=== PATIENT | female | born 1945 | race Caucasian/White ===

== ENCOUNTER 2018-11-04 12:50 | Outpatient (REF) | payer MEDICARE, SELFPAY ==
[2018-11-04 21:11] LABS: Anion Gap 8.9 mmol/L (3-11); BUN 30 mg/dL (7-18); CO2 31.1 mmol/L (21.0-32.0); CREATININE 1.27 mg/dL (0.55-1.02); Calcium 11.5 mg/dL (8.5-10.1); Chloride 103 mmol/L (98-107); Estimated GFR 41.48 (mL/min/1.73m2); Glucose 92 mg/dL (70-100); Potassium 3.9 mmol/L (3.5-5.1); Sodium 143 mmol/L (136-145)
[2018-11-06 15:36] LABS: Parathyroid Hormone,Intact 211 pg/ml (19-88)
== END 2018-11-04 13:10 ==
LOC: NCHCN 12:50
PROVIDERS: PCP Internal Medicine; Visit Provider Internal Medicine
DX: I10 Essential (primary) hypertension (principal); E83.52 Hypercalcemia
CPT/HCPCS: 80048; 83970

== ENCOUNTER 2018-11-22 10:11 | Outpatient (REF) | payer MEDICARE, SELFPAY ==
[2018-11-22 21:37] LABS: Anion Gap 10.3 mmol/L (3-11); BUN 16 mg/dL (7-18); CO2 26.7 mmol/L (21.0-32.0); CREATININE 1.08 mg/dL (0.55-1.02); Calcium 10.7 mg/dL (8.5-10.1); Chloride 108 mmol/L (98-107); Estimated GFR 50.01 (mL/min/1.73m2); Glucose 77 mg/dL (70-100); Potassium 3.9 mmol/L (3.5-5.1); Sodium 145 mmol/L (136-145)
== END 2018-11-22 10:31 ==
LOC: NCHCN 10:11
PROVIDERS: PCP Internal Medicine; Visit Provider Family Medicine
DX: E83.52 Hypercalcemia (principal)
CPT/HCPCS: 80048

== ENCOUNTER 2019-03-18 12:19 | Outpatient (REF) | payer MEDICARE, SELFPAY ==
[2019-03-18 23:17] LABS: Anion Gap 8.4 mmol/L (3-11); BUN 22 mg/dL (7-18); CO2 28.6 mmol/L (21.0-32.0); CREATININE 1.02 mg/dL (0.55-1.02); Calcium 10.5 mg/dL (8.5-10.1); Chloride 108 mmol/L (98-107); Estimated GFR 53.27 (mL/min/1.73m2); Glucose 77 mg/dL (70-100); Potassium 4.2 mmol/L (3.5-5.1); Sodium 145 mmol/L (136-145)
== END 2019-03-18 12:39 ==
LOC: NCHCN 12:19
PROVIDERS: PCP Internal Medicine; Visit Provider Internal Medicine
DX: E83.52 Hypercalcemia (principal)
CPT/HCPCS: 80048

== ENCOUNTER 2020-02-03 08:04 | Outpatient (REF) | payer MEDICARE, SELFPAY ==
[2020-02-03 21:22] LABS: BUN 17 mg/dL (7-18); CREATININE 1.03 mg/dL (0.55-1.02); Calcium 10.9 mg/dL (8.5-10.1); Calculated LDL 83 mg/dL (<100); Chloride 112 mmol/L (98-107); Cholesterol 178 mg/dL (<200); Estimated GFR 52.53 (mL/min/1.73m2); Glucose 81 mg/dL (74-106); HDL Cholesterol 35 mg/dL (40-60); Potassium 4.3 mmol/L (3.5-5.1); Sodium 148 mmol/L (136-145); Triglyceride 302 mg/dL (<150)
== END 2020-02-03 08:24 ==
LOC: NCHCN 08:04
PROVIDERS: PCP Internal Medicine; Visit Provider Internal Medicine
DX: I10 Essential (primary) hypertension (principal); M81.0 Age-related osteoporosis without current pathological fracture; E21.3 Hyperparathyroidism, unspecified
CPT/HCPCS: 80048; 80061

== ENCOUNTER 2020-09-15 15:19 | Outpatient (REF) | payer MEDICARE, SELFPAY ==
[2020-09-15 22:11] LABS: ALT 19 U/L (14-59); AST 12 U/L (15-37); Albumin 3.5 g/dL (3.4-5.0); Alkaline Phosphatase 54 U/L (46-116); Anion Gap 5.1 mmol/L (3-11); BUN 17 mg/dL (7-18); Bilirubin, Total 0.3 mg/dL (0.2-1.0); CO2 30.9 mmol/L (21.0-32.0); CREATININE 0.9 mg/dL (0.55-1.02); Calcium 10.7 mg/dL (8.5-10.1); Chloride 110 mmol/L (98-107); Glucose 73 mg/dL (74-106); Potassium 3.4 mmol/L (3.5-5.1); Sodium 146 mmol/L (136-145); Total Protein 6.3 g/dL (6.4-8.2)
[2020-09-15 22:45] LABS: Creatinine,Urine 139.12 mg/dL
[2020-09-15 22:48] LABS: COMMENT (LAB VIEW ONLY) 138.83 mg/dL; Microalb ug/mg Crea 11.2 ug/mg Cr
== END 2020-09-15 15:20 | disposition home or self-care (01) ==
LOC: NCHCN 15:19
PROVIDERS: PCP Internal Medicine; Visit Provider Internal Medicine
DX: R60.0 Localized edema (principal); R79.89 Other specified abnormal findings of blood chemistry
CPT/HCPCS: 80053; 82043; 82565; 82570

== ENCOUNTER 2020-09-20 08:27 | Outpatient (REF) | payer MEDICARE, SELFPAY ==
[2020-09-20 13:19] LABS: Anion Gap 6.8 mmol/L (3-11); BUN 14 mg/dL (7-18); CO2 30.2 mmol/L (21.0-32.0); Calcium 11.1 mg/dL (8.5-10.1); Chloride 109 mmol/L (98-107); Estimated GFR 54.35 (mL/min/1.73m2); Glucose 73 mg/dL (74-106); Potassium 3.6 mmol/L (3.5-5.1); Sodium 146 mmol/L (136-145)
== END 2020-09-20 08:28 | disposition home or self-care (01) ==
LOC: NCHCN 08:27
PROVIDERS: PCP Internal Medicine; Visit Provider Internal Medicine
DX: R60.0 Localized edema (principal)
CPT/HCPCS: 80048

== ENCOUNTER 2020-12-03 14:15 | Outpatient (REF) | payer MEDICARE, SELFPAY ==
[2020-12-03 14:54] LABS: Anion Gap 9.4 mmol/L (3-11); BUN 29 mg/dL (7-18); CO2 26.6 mmol/L (21.0-32.0); Calcium 11.1 mg/dL (8.5-10.1); Chloride 110 mmol/L (98-107); Estimated GFR 54.35 (mL/min/1.73m2); Glucose 86 mg/dL (74-106); Potassium 3.8 mmol/L (3.5-5.1); Sodium 146 mmol/L (136-145)
[2020-12-06 02:19] LABS: Vitamin D 25 Total 48.5 ng/mL (30-100)
[2020-12-07 08:54] LABS: Parathyroid Hormone,Intact 168 pg/mL (19-88)
== END 2020-12-03 14:16 | disposition home or self-care (01) ==
LOC: NCHCN 14:15
PROVIDERS: PCP Internal Medicine; Visit Provider Internal Medicine
DX: E55.9 Vitamin D deficiency, unspecified (principal); I10 Essential (primary) hypertension; E21.3 Hyperparathyroidism, unspecified
CPT/HCPCS: 80048; 82306; 83970

== ENCOUNTER 2022-12-25 15:54 | Outpatient (REF) | payer MEDICARE, MEDICAID, SELFPAY ==
[2022-12-25 15:44] LABS: HCT 37.4 % (36.0-46.0); HGB 11.4 g/dL (11.2-15.7); MCH 24.8 pg (27.0-33.0); MCHC 30.5 % (32.0-36.0); MCV 81 fL (80-95); MPV 10.7 fL (8.0-11.0); Platelet Count 162 10^3/uL (130-400); RDW-SD 47.7 fL; WBC 6.24 10^3/uL (4.4-10.8)
[2022-12-25 16:07] LABS: Anion Gap 7.5 mmol/L (3-11); BUN 19 mg/dL (7-18); CO2 28.5 mmol/L (21.0-32.0); CREATININE 0.8 mg/dL (0.55-1.02); Calcium 8.5 mg/dL (8.5-10.1); Calculated LDL 109 mg/dL (<100); Chloride 111 mmol/L (98-107); Cholesterol 176 mg/dL (<200); Estimated GFR 76.79 (mL/min/1.73m2); Glucose 77 mg/dL (74-106); HDL Cholesterol 43 mg/dL (40-60); Sodium 147 mmol/L (136-145); Triglyceride 120 mg/dL (<150)
== END 2022-12-25 15:55 | disposition home or self-care (01) ==
LOC: NCHCN 15:54
PROVIDERS: PCP Internal Medicine; Visit Provider Internal Medicine
DX: I10 Essential (primary) hypertension (principal); E78.5 Hyperlipidemia, unspecified; D64.9 Anemia, unspecified
CPT/HCPCS: 80048; 80061; 85027

== ENCOUNTER 2023-05-17 16:51 | Outpatient (REF) | payer MEDICARE, MEDICAID, SELFPAY ==
--- OUTSIDE RECORDS SUMMARY | 2023-05-17 16:54 | XMS_ITS | CCD ---
Author Name Unknown Address [address] [place] [address] [id number] Organization Unknown Address [address] [place] [address] [id number] Care Team Providers Care Shop Welder Name Role Phone GARRET MARTINEZ Attending Physician [phone] Vital Signs Unknown or Not Available. Allergies Allergy Code Allergy Type Reaction Status No Known Drug Allergies 0 No known drug allergies Active Procedures Unknown or Not Available. History of Immunizations Unknown or Not Available. 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 Active Medications Medication Code Dose Units Frequency Route Modificatio n Start Date/Time Augmentin 500MG-125MG Oral Tablet 825429 1 TABLET TWICE A DAY ORAL 04/25/2023 11:10 Prescription Detail TAKE 1 TABLET ORAL TWICE A DAY guaiFENesin DM 10MG/5ML-100MG/ 5ML Oral Syrup 019026 10 mL NEEDED EVERY 4 HOURS ORAL 04/25/2023 11:00 Prescription Detail TAKE 10 mL ORAL NEEDED EVERY 4 HOURS Ondansetron 4MG Oral Tablet 656100 4 MILLIGRAMS NEEDED EVERY 8 HOURS ORAL 04/25/2023 11:00 Prescription Detail TAKE 4 MILLIGRAMS ORAL NEEDED EVERY 8 HOURS Acetaminophen 500MG Oral Tablet 616218 8596 MILLIGRAMS NEEDED EVERY 6 HOURS ORAL 04/20/2023 12:03 Prescription Detail TAKE 1000 MILLIGRAMS ORAL NEEDED EVER Y 6 HOURS Alendronate Sod 70MG Oral Tablet 0955251605 0 70 MILLIGRAMS SUNDAYS ORAL 04/20/2023 12:03 Prescription Detail TAKE 70 MILLIGRAMS ORAL SUNDAYS Artificial Tears Ophthalmic Solution 860031 1 EACH FOUR TIMES A DAY OPHTHALMIC 04/20/2023 12:[address] 1 EACH OPHTHALMIC FOUR TIMES A DAY Docusate 100MG Oral Capsule, Liquid Filled 2807358 100 MILLIGRAMS NEEDED TWICE DAILY ORAL 04/20/2023 12:03 Prescription Detail TAKE 100 MILLIGRAMS ORAL NEEDED TWICE DAILY Famotidine 20MG Oral Tablet 957062 20 MILLIGRAMS TWICE A DAY ORAL 04/20/2023 12:03 Prescription Detail TAKE 20 MILLIGRAMS ORAL TWICE A DAY Hydrocortisone 2.5% Topical application Cream 148390 1 EACH NEEDED DAILY TOPICAL APPLICATION 04/20/2023 12:03 Prescription Detail 1 EACH TOPICAL APPLICATION NEEDED MARIA L LY Ibuprofen 200MG Oral Tablet 607280 400 MILLIGRAMS NEEDED EVERY 6 HOURS ORAL 04/20/2023 12:03 Prescription Detail TAKE 400 MILLIGRAMS ORAL NEEDED EVERY 6 HOURS Lisinopril 20MG Oral Tablet 133827 20 MILLIGRAMS DAILY ORAL 023 12:03 Prescription Detail TAKE 20 MILLIGRAMS ORAL DAILY Lovastatin 40MG Oral Tablet 131205 40 MILLIGRAMS BEDTIME ORAL 023 12:03 Prescription Detail TAKE 40 MILLIGRAMS ORAL BEDTIME Polyethylene Glycol 3350 17 GM/1 Packet Oral Packet 230961 1 EACH NEEDED DAILY ORAL 04/20/2023 12:03 Prescription Detail TAKE 1 EACH ORAL NEEDED DAILY Simethicone 80MG Oral Tablet, Chewable 009464 80 MILLIGRAMS NEEDED EVERY 6 HOURS ORAL 04/20/2023 12:03 Prescription Detail TAKE 80 MILLIGRAMS ORAL NEEDED EVERY 6 HOURS Vitamin D3 1000 IU Oral Capsule, Liquid Filled 2784515852 1 1000 IU DAILY ORAL 04/20/2023 12:03 Prescription Detail TAKE 1000 IU ORAL DAILY Fluticasone Propionate 0.05MG/1Actuati [place] 5325401 1 EACH TWICE A DAY NASAL 04/26/2022 16:41 Prescription Detail SPRAY 1 EACH NASAL TWICE A DAY Memantine HCl 7MG Oral Capsule, Extended Release 439644 7 MILLIGRAMS DAILY ORAL 16:41 Prescription Detail TAKE 7 MILLIGRAMS ORAL DAILY Medications Administered During Visit Unknown or Not Available. Encounters Encounter Diagnosis Diagnosis Code Start Date Encounter for screening mamm ogram for malignant neoplasm of breast Z1231 12/31/2020 Social History Smoking Status Code Start Date End Date Never smoker [id number] Patient Decision Aids Unknown or Not Available. Discharge Instructions You were admitted to [facility] on 12/31/2020 12:57 with a principal diagnosis of Encounter for screening mammogram for malignant neoplasm of breast You were discharged from [facility] on 12/31/2020 12:57 Should you have any questions prior to discharge, please contact a member of your healthcare team. If you have left the hospital and have any questions, please contact your primary care physician. Chief Complaint and Reason For Visit Unknown or Not Available. Function Status Unknown or Not Available. Plan of Care Unknown or Not Available. Referral/Transition of Care Unknown or Not Available.
--- OUTSIDE RECORDS SUMMARY | 2023-05-17 16:54 | XMS_ITS | CCD ---
Author Name Unknown Address [address] [place] [address] [id number] Organization Unknown Address [address] [place] [address] [phone] Care Team Providers Care Sales Management Trainee Name Role Phone KATHY MENDEZ Attending Physician [phone] KATHY MENDEZ Er Physician 2 [phone] [place]LEY [place] Registered Nurse [phone] IVY Collins Registered Nurse [phone] Vital Signs Vital Sign Value Unit Date/Time Recent/Initial ? BMI (Body Mass Index) 22.46 kg/m^2 03/06/2022 23: 35 Initial VS Weight Measured 135 lbs 03/06/2022 23:35 Ini tial VS Height 65 in 03/06/2022 23:35 Initial VS BSA (Body Surface Area) 1.68 m^2 03/06/2022 2 3:35 Initial VS BP Systolic 176 mmHg 03/06/2022 23:35 Initial VS BP Diastolic 71 mmHg 03/06/2022 23:35 Initia l VS Respiratory Rate 20 bpm 03/06/2022 23:35 In itial VS Heart Rate 72 bpm 03/06/2022 23:35 Initial VS O2 % BldC Oximetry 99 % 03/06/2022 23:35 Initial VS Body Temperature 36.6 degrees 03/06/2022 23:35 In itial VS BP Systolic 144 mmHg 03/07/2022 09:30 Most Re cent VS BP Diastolic 74 mmHg 03/07/2022 09:30 Most R ecent VS Respiratory Rate 18 bpm 03/07/2022 09:[address] Recent VS Heart Rate 81 bpm 03/07/2022 09:30 Most Rec ent VS O2 % BldC Oximetry 99 % 03/07/2022 09:30 Most Recent VS Allergies Allergy Code Allergy Type Reaction Status No Known Drug Allergies 0 No known drug allergies Active Procedures Unknown or Not Available. History of Immunizations Unknown or Not Available. 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 69495-7 4.78 mg/L L=0.00 H=3 .00 CRP-HIGH SENS 63674-9 0.48 mg/dL L=0.00 H=0. 30 COMPREHENSIVE METABOLIC PANE L (CMP) - Collect Date/Time: 03/06/2022 23:32 Test Name Code Test Result Test Units Test Ref Rang e GLUCOSE 2345-7 121 mg/dL L=70 H=116 BUN 3094-0 22 mg/dL L=6 H=25 CREATININE 2160-0 0.99 mg/dL L=0.51 H=0.95 SODIUM SERUM 2951-2 142 mmol/L L=136 H=145 POTASSIUM SERUM 2823-3 3.8 mmol/L L=3.4 H=5 .2 CHLORIDE SERUM 2075-0 103 mmol/L L=96 H=110 CARBON DIOXIDE (CO2) 2028-9 29 mmol/L L=22 H=34 ANION GAP 27411-1 10.0 mmol/L CALCIUM SERUM 49652-9 9.4 mg/dL L=8.2 H=10. 2 BILIRUBIN TOTAL 1975-2 0.5 mg/dL L=0.0 H=1 .3 ALK. PHOS. 6768-6 37 U/L L=46 H=116 SGOT (AST) 1920-8 17 U/L L=15 H=37 SGPT (ALT) 1742-6 24 U/L L=12 H=78 TOTAL PROTEIN 2885-2 7.9 gm/dL L=6.0 H=8.0 ALBUMIN 1751-7 4.2 gm/dL L=3.4 H=5.0 AGE 77 years eGFR (non-Afr.Amer.) 52392-7 55 mL/min eGFR (Afr-Syrian) 77660-6 66 mL/min LIPASE* - Collect Date/Time: 03/06/2022 23:32 Test Name Code Test Result Test Units Test Ref Rang e LIPASE 122 U/L L=73 H=393 TROPONIN HIGH SENSITIVITY* - Collect Date/Time: 03/06/2022 23:32 Test Name Code Test Result Test Units Test Ref Rang e TROPONIN HS 26.2 pg/mL L=0.0 H=60.4 Specimen seq. Random N/A CBC W/ DIFFERENTIAL* - Colle ct Date/Time: 03/06/2022 23:32 Test Name Code Test Result Test Units Test Ref Rang e WBC 6690-2 5.41 th/cmm L=5.00 H=10.00 NEUT % 78.5 % L=40.0 H=80.0 LYMPH % 15.3 % L=10.0 H=50.0 MONO % 60584-6 4.3 % L=2.0 H=12.0 EOS % 1.3 % L=0.0 H=8.0 BASO % 0.4 % L=0.0 H=3.0 IG % 2514-8 0.2 % L=0.0 H=1.1 NRBC % 47935-7 0.0 % L=0.0 H=0.0 NEUT abs count 751-8 4.3 th/cmm L=1.6 H=8. 4 LYMPH abs count 731-0 0.8 th/cmm L=1.5 H=4 .0 MONO abs count 742-7 0.2 th/cmm L=0.2 H=1. 0 EOS abs count 711-2 0.1 th/cmm L=0.0 H=0.5 BASO abs count 704-7 0.0 th/cmm L=0.0 H=0. 2 IG abs count 23226-3 0.0 th/cmm L=0.0 H=0.1 NRBC abs count 76451-0 0.0 mil/cmm L=0.0 H=0. 0 RBC 789-8 5.13 mil/cmm L=3.90 H=5.40 HEMOGLOBIN 718-7 14.2 gm/dL L=12.0 H=16.0 HEMATOCRIT 4544-3 44 % L=37 H=47 MCV 787-2 85 fL L=82 H=92 MCH 785-6 27.7 pg L=27.0 H=31.0 MCHC 786-4 32.6 % L=32.0 H=36.0 RDW-SD 788-0 44.5 fL L=39.0 H=49.0 PLATELET COUNT 777-3 132 th/cmm L=150 H=45 0 KATIE COVID GENEXPERT* - Co llect Date/Time: 03/07/2022 04:13 Test Name Code Test Result Test Units Test Ref Rang e COVID 03015-1 NEGATIVE N/A Normal: Negati ve [facility]- 34159-0 INPATIENT/ED N/A Active Medications Medications Administered During Visit Medication Dose Units Frequency Route Date/Time of Last Dose ONDANSETRON INJ SDV: 4MG/2ML 4 MG X1 I MANUFACTURING LEADER 03/06/2022 23:56 SODIUM CHLORIDE 0.9% 500ML 500 ML X1 03/06/2022 23:56 ONDANSETRON INJ SDV: 4MG/2ML 4 MG X1 I MANUFACTURING LEADER 03/07/2022 01:02 HALOPERIDOL LACTATE INJ: 5MG/1ML 2.5 MG X1 IVP 03/07/2022 02:03 LACTATED RINGERS 1000ML 1000 ML X1 03/07/2022 04:14 HALOPERIDOL LACTATE INJ: 5MG/1ML 2.5 MG X1 IVP 03/07/2022 09:59 Encounters Encounter Diagnosis Diagnosis Code Start Date Obstructed diaphragmatic hernia 935693186 03/06/2022 Social History Smoking Status Code Start Date End Date Never smoker 888137450 Patient Decision Aids Unknown or Not Available. Discharge Instructions You were admitted to [facility] on 03/06/2022 23:10 with a principal diagnosis of Diaphragmatic hernia with obstruction, without gangrene You had the following tests done:[facility] [employer] GENEXPERT*C REACTIVE PROTEIN HIGH SENSITIVITY*CBC W/ DIFFERENTIAL*COMPREHENSIVE METABOLIC PANEL (CMP)LIPASE*TROPONIN HIGH SENSITIVITY* You were discharged from [facility] on 03/07/2022 10:03 Should you have any questions prior to discharge, please contact a member of your healthcare team. If you have left the hospital and have any questions, please contact your primary care physician. Chief Complaint and Reason For Visit Chief Complaint Date of Onset ABDOMINAL PAIN Function Status Unknown or Not Available. Plan of Care Unknown or Not Available. Referral/Transition of Care Unknown or Not Available.
--- OUTSIDE RECORDS SUMMARY | 2023-05-17 16:54 | XMS_ITS | CCD ---
Author Name Unknown Address [address] [place] [address] [phone] Organization Unknown Address [address] [place] [address] [phone] Care Team Providers Care Global Sales Director Name Role Phone LITA BENTON Attending Physician [phone] KATHY MENDEZ Er Physician 2 [phone] KATHY MENDEZ Rounding (Secondary) Physician [phone] DINA Castillo Registered Nurse [phone] Vital Signs Vital Sign Value Unit Date/Time Recent/Initial ? BP Systolic 165 mmHg 04/25/2022 00:07 Initial VS BP Diastolic 71 mmHg 04/25/2022 00:07 Initia l VS Respiratory Rate 18 bpm 04/25/2022 00:07 In itial VS Heart Rate 68 bpm 04/25/2022 00:07 Initial VS O2 % BldC Oximetry 95 % 04/25/2022 00:07 Initial VS Body Temperature 35.6 degrees 04/25/2022 00:07 In itial VS BMI (Body Mass Index) 24.22 kg/m^2 04/25/2022 03: 11 Initial VS Weight Measured 124 lbs 04/25/2022 03:11 Ini tial VS Height 60 in 04/25/2022 03:11 Initial VS BSA (Body Surface Area) 1.54 m^2 04/25/2022 0 3:11 Initial VS BP Systolic 140 mmHg 04/26/2022 16:25 Most Re cent VS BP Diastolic 66 mmHg 04/26/2022 16:25 Most R ecent VS Respiratory Rate 18 bpm 04/26/2022 16:[address] Recent VS Heart Rate 63 bpm 04/26/2022 16:25 Most Rec ent VS O2 % BldC Oximetry 94 % 04/26/2022 16:25 Most Recent VS Body Temperature 36.7 degrees 04/26/2022 16:[address] Recent VS Allergies Allergy Code Allergy Type Reaction Status No Known Drug Allergies 0 No known drug allergies Active Procedures Unknown or Not Available. History of Immunizations Unknown or Not Available. 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 2 AGE 77 years eGFR (non-Afr.Amer.) 15059-2 74 mL/min eGFR (Afr-Libyan) 72060-0 90 mL/min C REACTIVE PROTEIN HIGH SENS ITIVITY* - Collect Date/Time: 04/25/2022 00:06 Test Name Code Test Result Test Units Test Ref Rang e CRP-HIGH SENS. 42807-7 7.05 mg/L L=0.00 H=3 .00 CRP-HIGH SENS 13090-2 0.71 mg/dL L=0.00 H=0. 30 COMPREHENSIVE METABOLIC PANE L (CMP) - Collect Date/Time: 04/25/2022 00:06 Test Name Code Test Result Test Units Test Ref Rang e GLUCOSE 2345-7 122 mg/dL L=70 H=116 BUN 3094-0 24 mg/dL L=6 H=25 CREATININE 2160-0 0.93 mg/dL L=0.51 H=0.95 SODIUM SERUM 2951-2 145 mmol/L L=136 H=145 POTASSIUM SERUM 2823-3 3.9 mmol/L L=3.4 H=5 .2 CHLORIDE SERUM 2075-0 104 mmol/L L=96 H=110 CARBON DIOXIDE (CO2) 2028-9 29 mmol/L L=22 H=34 ANION GAP 13445-4 11.7 mmol/L CALCIUM SERUM 78854-9 9.3 mg/dL L=8.2 H=10. 2 BILIRUBIN TOTAL 1975-2 0.6 mg/dL L=0.0 H=1 .3 ALK. PHOS. 6768-6 42 U/L L=46 H=116 SGOT (AST) 1920-8 21 U/L L=15 H=37 SGPT (ALT) 1742-6 24 U/L L=12 H=78 TOTAL PROTEIN 2885-2 8.1 gm/dL L=6.0 H=8.0 ALBUMIN 1751-7 4.2 gm/dL L=3.4 H=5.0 AGE 77 years eGFR (non-Afr.Amer.) 99297-6 59 mL/min eGFR (Afr-Libyan) 07625-1 71 mL/min LIPASE* NEW - Collect Date/T tatiana: 04/25/2022 00:06 Test Name Code Test Result Test Units Test Ref Rang e LIPASE. 26 U/L L=16 H=77 CBC W/ DIFFERENTIAL* - [facility] ct Date/Time: 04/26/2022 07:35 Test Name Code Test Result Test Units Test Ref Rang e WBC 6690-2 6.02 th/cmm L=5.00 H=10.00 NEUT % 77.4 % L=40.0 H=80.0 LYMPH % 13.1 % L=10.0 H=50.0 MONO % 16674-0 8.5 % L=2.0 H=12.0 EOS % 0.5 % L=0.0 H=8.0 BASO % 0.2 % L=0.0 H=3.0 IG % 2514-8 0.3 % L=0.0 H=1.1 NRBC % 08029-7 0.0 % L=0.0 H=0.0 NEUT abs count 751-8 4.7 th/cmm L=1.6 H=8. 4 LYMPH abs count 731-0 0.8 th/cmm L=1.5 H=4 .0 MONO abs count 742-7 0.5 th/cmm L=0.2 H=1. 0 EOS abs count 711-2 0.0 th/cmm L=0.0 H=0.5 BASO abs count 704-7 0.0 th/cmm L=0.0 H=0. 2 IG abs count 05083-9 0.0 th/cmm L=0.0 H=0.1 NRBC abs count 13335-6 0.0 mil/cmm L=0.0 H=0. 0 RBC 789-8 3.83 mil/cmm L=3.90 H=5.40 HEMOGLOBIN 718-7 10.4 gm/dL L=12.0 H=16.0 HEMATOCRIT 4544-3 34 % L=37 H=47 MCV 787-2 89 fL L=82 H=92 MCH 785-6 27.2 pg L=27.0 H=31.0 MCHC 786-4 30.5 % L=32.0 H=36.0 RDW-SD 788-0 46.2 fL L=39.0 H=49.0 PLATELET COUNT 777-3 138 th/cmm L=150 H=45 0 CBC W/ DIFFERENTIAL* - [facility] ct Date/Time: 04/25/2022 00:06 Test Name Code Test Result Test Units Test Ref Rang e WBC 6690-2 7.27 th/cmm L=5.00 H=10.00 NEUT % 82.5 % L=40.0 H=80.0 LYMPH % 12.2 % L=10.0 H=50.0 MONO % 00409-8 3.7 % L=2.0 H=12.0 EOS % 0.6 % L=0.0 H=8.0 BASO % 0.4 % L=0.0 H=3.0 IG % 2514-8 0.6 % L=0.0 H=1.1 NRBC % 44504-7 0.0 % L=0.0 H=0.0 NEUT abs count 751-8 6.0 th/cmm L=1.6 H=8. 4 LYMPH abs count 731-0 0.9 th/cmm L=1.5 H=4 .0 MONO abs count 742-7 0.3 th/cmm L=0.2 H=1. 0 EOS abs count 711-2 0.0 th/cmm L=0.0 H=0.5 BASO abs count 704-7 0.0 th/cmm L=0.0 H=0. 2 IG abs count 05980-2 0.0 th/cmm L=0.0 H=0.1 NRBC abs count 10754-3 0.0 mil/cmm L=0.0 H=0. 0 RBC 789-8 4.97 mil/cmm L=3.90 H=5.40 HEMOGLOBIN 718-7 13.5 gm/dL L=12.0 H=16.0 HEMATOCRIT 4544-3 42 % L=37 H=47 MCV 787-2 84 fL L=82 H=92 MCH 785-6 27.2 pg L=27.0 H=31.0 MCHC 786-4 32.3 % L=32.0 H=36.0 RDW-SD 788-0 42.5 fL L=39.0 H=49.0 PLATELET COUNT 777-3 173 th/cmm L=150 H=45 0 KATIE COVID GENEXPERT* - Co llect Date/Time: 04/25/2022 00:16 Test Name Code Test Result Test Units Test Ref Rang e COVID 19397-0 NEGATIVE N/A Normal: Negati ve [facility]- 50030-3 INPATIENT/ED N/A Active Medications Medications Administered During Visit Medication Dose Units Frequency Route Date/Time of Last Dose SODIUM CHLORIDE 0.9% 500ML 500 ML X1 04/25/2022 00:07 ONDANSETRON INJ SDV: 4MG/2ML 4 MG X1 I ONLINE ADVERTISING ANALYST 04/25/2022 00:05 ACETAMINOPHEN INJ IVPB: 1000MG/100ML 1000 MG X1 04/25/2022 00:0 7 PANTOPRAZOLE INJ SDV: 40MG 40 MG BID IVP 04/26/2022 08:32 POTASSIUM CHL IN D5%-NS: 20mEq/1000ML 20 MEQ CONT 04/26/2022 06:5 9 Encounters Encounter Diagnosis Diagnosis Code Start Date Diaphragmatic hernia with obstruction, without g angrene K440 04/25/2022 Social History Smoking Status Code Start Date End Date Never smoker [id number] Patient Decision Aids Unknown or Not Available. Discharge Instructions You were admitted to [facility] on 04/25/2022 03:00 with a principal diagnosis of Diaphragmatic hernia with obstruction, without gangrene You had the following tests done:BASIC METABOLIC PANEL (BMP)CBC W/ DIFFERENTIAL*[facility] COVID GENEXPERT*C REACTIVE PROTEIN HIGH SENSITIVITY*CBC W/ DIFFERENTIAL*COMPREHENSIVE METABOLIC PANEL (CMP)LIPASE* NEW You were discharged from [facility] on 04/26/2022 17:15 Should you have any questions prior to discharge, please contact a member of your healthcare team. If you have left the hospital and have any questions, please contact your primary care physician. Chief Complaint and Reason For Visit Chief Complaint Date of Onset BOWL OBSTRUCTION 04/25/2022 Function Status Unknown or Not Available. Plan of Care Unknown or Not Available. Referral/Transition of Care Reason for Transfer: TRANSFER FROM [facility] Referring Provider: [facility] Address: [address] [place] [id number]
--- OUTSIDE RECORDS SUMMARY | 2023-05-17 16:55 | XMS_ITS | CCD ---
Author Name Unknown Address [address] [place] [address] [phone] Organization Unknown Address [address] [place] [address] [phone] Care Team Providers Care Reproductive Surgeon Name Role Phone DAVION SMITH Attending Physician [phone] Vital Signs Unknown or Not Available. Allergies Allergy Code Allergy Type Reaction Status No Known Drug Allergies 0 No known drug allergies Active Procedures Unknown or Not Available. History of Immunizations Unknown or Not Available. 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 467321438 04/25/2022 Resolved Compulsive hoarding 841492730 03/06/2022 Resol isael Depression 07582489 03/06/2022 Resolved PTSD 59223631 03/06/2022 Resolved Chronic kidney disease 095214142 03/06/2022 Re solved Results KATIE GUZMAN* - Heri ect Date/Time: 08/05/2021 10:37 Test Name Code Test Result Test Units Test Ref Rang e Tier- 65293-4 PRE-OP N/A SARS COV2 RNA: 80689-4 NEGATIVE N/A REFERENCE RANGE: NEGAT Active Medications Medication Code Dose Units Frequency Route Modificatio n Start Date/Time Augmentin 500MG-125MG Oral Tablet [id number] 1 TABLET TWICE A DAY ORAL 04/25/2023 11:10 Prescription Detail TAKE 1 TABLET ORAL TWICE A DAY guaiFENesin DM 10MG/5ML-100MG/ 5ML Oral Syrup 731713 10 mL NEEDED EVERY 4 HOURS ORAL 04/25/2023 11:00 Prescription Detail TAKE 10 mL ORAL NEEDED EVERY 4 HOURS Ondansetron 4MG Oral Tablet 861918 4 MILLIGRAMS NEEDED EVERY 8 HOURS ORAL 04/25/2023 11:00 Prescription Detail TAKE 4 MILLIGRAMS ORAL NEEDED EVERY 8 HOURS Acetaminophen 500MG Oral Tablet 319799 1110 MILLIGRAMS NEEDED EVERY 6 HOURS ORAL 04/20/2023 12:03 Prescription Detail TAKE 1000 MILLIGRAMS ORAL NEEDED EVER Y 6 HOURS Alendronate Sod 70MG Oral Tablet 5891791640 0 70 MILLIGRAMS SUNDAYS ORAL 04/20/2023 12:03 Prescription Detail TAKE 70 MILLIGRAMS ORAL SUNDAYS Artificial Tears Ophthalmic Solution 322019 1 EACH FOUR TIMES A DAY OPHTHALMIC 04/20/2023 12:[address] 1 EACH OPHTHALMIC FOUR TIMES A DAY Docusate 100MG Oral Capsule, Liquid Filled 8799979 100 MILLIGRAMS NEEDED TWICE DAILY ORAL 04/20/2023 12:03 Prescription Detail TAKE 100 MILLIGRAMS ORAL NEEDED TWICE DAILY Famotidine 20MG Oral Tablet 356641 20 MILLIGRAMS TWICE A DAY ORAL 04/20/2023 12:03 Prescription Detail TAKE 20 MILLIGRAMS ORAL TWICE A DAY Hydrocortisone 2.5% Topical application Cream 365863 1 EACH NEEDED DAILY TOPICAL APPLICATION 04/20/2023 12:03 Prescription Detail 1 EACH TOPICAL APPLICATION NEEDED MARIA L LY Ibuprofen 200MG Oral Tablet 699377 400 MILLIGRAMS NEEDED EVERY 6 HOURS ORAL 04/20/2023 12:03 Prescription Detail TAKE 400 MILLIGRAMS ORAL NEEDED EVERY 6 HOURS Lisinopril 20MG Oral Tablet 838108 20 MILLIGRAMS DAILY ORAL 023 12:03 Prescription Detail TAKE 20 MILLIGRAMS ORAL DAILY Lovastatin 40MG Oral Tablet 985677 40 MILLIGRAMS BEDTIME ORAL 023 12:03 Prescription Detail TAKE 40 MILLIGRAMS ORAL BEDTIME Polyethylene Glycol 3350 17 GM/1 Packet Oral Packet 837891 1 EACH NEEDED DAILY ORAL 04/20/2023 12:03 Prescription Detail TAKE 1 EACH ORAL NEEDED DAILY Simethicone 80MG Oral Tablet, Chewable 079380 80 MILLIGRAMS NEEDED EVERY 6 HOURS ORAL 04/20/2023 12:03 Prescription Detail TAKE 80 MILLIGRAMS ORAL NEEDED EVERY 6 HOURS Vitamin D3 1000 IU Oral Capsule, Liquid Filled 2218830199 1 1000 IU DAILY ORAL 04/20/2023 12:03 Prescription Detail TAKE 1000 IU ORAL DAILY Fluticasone Propionate 0.05MG/1Actuati on Nasal [place] 2704688 1 EACH TWICE A DAY NASAL 04/26/2022 16:41 Prescription Detail SPRAY 1 EACH NASAL TWICE A DAY Memantine HCl 7MG Oral Capsule, Extended Release 647885 7 MILLIGRAMS DAILY ORAL 16:41 Prescription Detail TAKE 7 MILLIGRAMS ORAL DAILY Medications Administered During Visit Unknown or Not Available. Encounters Encounter Diagnosis Diagnosis Code Start Date Pre-surgery testing [id number] 08/05/2021 Social History Smoking Status Code Start Date End Date Never smoker [id number] Patient Decision Aids Unknown or Not Available. Discharge Instructions You were admitted to [facility] on 08/05/2021 06:52 with a principal diagnosis of Encounter for preprocedural laboratory examination You had the following tests done:KATIE COVID RHEONIX* You were discharged from [facility] on 08/05/2021 06:53 Should you have any questions prior to [...]
--- OUTSIDE RECORDS SUMMARY | 2023-05-17 16:55 | XMS_ITS | CCD ---
Author Name Unknown Address [address] [place] [address] [phone] Organization Unknown Address [address] [place] [address] [phone] Care Team Providers Care Rn International Name Role Phone GARRET MARTINEZ Attending Physician [phone] Vital Signs Unknown or Not Available. Allergies Allergy Code Allergy Type Reaction Status No Known Drug Allergies 0 No known drug allergies Active Procedures Unknown or Not Available. History of Immunizations Unknown or Not Available. 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 Active Medications Medication Code Dose Units Frequency Route Modificatio n Start Date/Time Augmentin 500MG-125MG Oral Tablet 396618 1 TABLET TWICE A DAY ORAL 04/25/2023 11:10 Prescription Detail TAKE 1 TABLET ORAL TWICE A DAY guaiFENesin DM 10MG/5ML-100MG/ 5ML Oral Syrup 536177 10 mL NEEDED EVERY 4 HOURS ORAL 04/25/2023 11:00 Prescription Detail TAKE 10 mL ORAL NEEDED EVERY 4 HOURS Ondansetron 4MG Oral Tablet 317397 4 MILLIGRAMS NEEDED EVERY 8 HOURS ORAL 04/25/2023 11:00 Prescription Detail TAKE 4 MILLIGRAMS ORAL NEEDED EVERY 8 HOURS Acetaminophen 500MG Oral Tablet 386381 7116 MILLIGRAMS NEEDED EVERY 6 HOURS ORAL 04/20/2023 12:03 Prescription Detail TAKE 1000 MILLIGRAMS ORAL NEEDED EVER Y 6 HOURS Alendronate Sod 70MG Oral Tablet 1801066854 0 70 MILLIGRAMS SUNDAYS ORAL 04/20/2023 12:03 Prescription Detail TAKE 70 MILLIGRAMS ORAL SUNDAYS Artificial Tears Ophthalmic Solution 061485 1 EACH FOUR TIMES A DAY OPHTHALMIC 04/20/2023 12:[address] 1 EACH OPHTHALMIC FOUR TIMES A DAY Docusate 100MG Oral Capsule, Liquid Filled 2172649 100 MILLIGRAMS NEEDED TWICE DAILY ORAL 04/20/2023 12:03 Prescription Detail TAKE 100 MILLIGRAMS ORAL NEEDED TWICE DAILY Famotidine 20MG Oral Tablet 492637 20 MILLIGRAMS TWICE A DAY ORAL 04/20/2023 12:03 Prescription Detail TAKE 20 MILLIGRAMS ORAL TWICE A DAY Hydrocortisone 2.5% Topical application Cream 367073 1 EACH NEEDED DAILY TOPICAL APPLICATION 04/20/2023 12:03 Prescription Detail 1 EACH TOPICAL APPLICATION NEEDED MARIA L LY Ibuprofen 200MG Oral Tablet 911527 400 MILLIGRAMS NEEDED EVERY 6 HOURS ORAL 04/20/2023 12:03 Prescription Detail TAKE 400 MILLIGRAMS ORAL NEEDED EVERY 6 HOURS Lisinopril 20MG Oral Tablet 858526 20 MILLIGRAMS DAILY ORAL 023 12:03 Prescription Detail TAKE 20 MILLIGRAMS ORAL DAILY Lovastatin 40MG Oral Tablet 070441 40 MILLIGRAMS BEDTIME ORAL 023 12:03 Prescription Detail TAKE 40 MILLIGRAMS ORAL BEDTIME Polyethylene Glycol 3350 17 GM/1 Packet Oral Packet 771865 1 EACH NEEDED DAILY ORAL 04/20/2023 12:03 Prescription Detail TAKE 1 EACH ORAL NEEDED DAILY Simethicone 80MG Oral Tablet, Chewable 332615 80 MILLIGRAMS NEEDED EVERY 6 HOURS ORAL 04/20/2023 12:03 Prescription Detail TAKE 80 MILLIGRAMS ORAL NEEDED EVERY 6 HOURS Vitamin D3 1000 IU Oral Capsule, Liquid Filled 5109180069 1 1000 IU DAILY ORAL 04/20/2023 12:03 Prescription Detail TAKE 1000 IU ORAL DAILY Fluticasone Propionate 0.05MG/1Actuati on Nasal [place] 0019376 1 EACH TWICE A DAY NASAL 04/26/2022 16:41 Prescription Detail SPRAY 1 EACH NASAL TWICE A DAY Memantine HCl 7MG Oral Capsule, Extended Release 957100 7 MILLIGRAMS DAILY ORAL 16:41 Prescription Detail TAKE 7 MILLIGRAMS ORAL DAILY Medications Administered During Visit Unknown or Not Available. Encounters Encounter Diagnosis Diagnosis Code Start Date Senile osteoporosis [id number] 07/14/2021 Social History Smoking Status Code Start Date End Date Never smoker 853633103 Patient Decision Aids Unknown or Not Available. Discharge Instructions You were admitted to [facility] on 07/14/2021 13:04 with a principal diagnosis of Age-related osteoporosis without current pathological fracture You were discharged from [facility] on 07/14/2021 13:04 Should you have any questions prior to discharge, please contact a member of your healthcare team. If you have left the hospital and have any questions, please contact your primary care physician. Chief Complaint and Reason For Visit Chief Complaint Date of Onset OSTEOPOROSIS, POSTMENOPAUSAL Function Status Unknown or Not Available. Plan of Care Unknown or Not Available. Referral/Transition of Care Unknown or Not Available.
--- OUTSIDE RECORDS SUMMARY | 2023-05-17 16:55 | XMS_ITS | CCD ---
Author Name Unknown Address [address] [place] [address] [phone] Organization Unknown Address [address] [place] [address] [phone] Care Team Providers Care Flyer Maker Name Role Phone GARRET MARTINEZ Attending Physician [phone] Vital Signs Unknown or Not Available. Allergies Allergy Code Allergy Type Reaction Status No Known Drug Allergies 0 No known drug allergies Active Procedures Unknown or Not Available. History of Immunizations Unknown or Not Available. 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 Active Medications Medication Code Dose Units Frequency Route Modificatio n Start Date/Time Augmentin 500MG-125MG Oral Tablet 189236 1 TABLET TWICE A DAY ORAL 04/25/2023 11:10 Prescription Detail TAKE 1 TABLET ORAL TWICE A DAY guaiFENesin DM 10MG/5ML-100MG/ 5ML Oral Syrup 918183 10 mL NEEDED EVERY 4 HOURS ORAL 04/25/2023 11:00 Prescription Detail TAKE 10 mL ORAL NEEDED EVERY 4 HOURS Ondansetron 4MG Oral Tablet 965308 4 MILLIGRAMS NEEDED EVERY 8 HOURS ORAL 04/25/2023 11:00 Prescription Detail TAKE 4 MILLIGRAMS ORAL NEEDED EVERY 8 HOURS Acetaminophen 500MG Oral Tablet 327037 8134 MILLIGRAMS NEEDED EVERY 6 HOURS ORAL 04/20/2023 12:03 Prescription Detail TAKE 1000 MILLIGRAMS ORAL NEEDED EVER Y 6 HOURS Alendronate Sod 70MG Oral Tablet 4108386497 0 70 MILLIGRAMS SUNDAYS ORAL 04/20/2023 12:03 Prescription Detail TAKE 70 MILLIGRAMS ORAL SUNDAYS Artificial Tears Ophthalmic Solution 691841 1 EACH FOUR TIMES A DAY OPHTHALMIC 04/20/2023 12:[address] 1 EACH OPHTHALMIC FOUR TIMES A DAY Docusate 100MG Oral Capsule, Liquid Filled 3912181 100 MILLIGRAMS NEEDED TWICE DAILY ORAL 04/20/2023 12:03 Prescription Detail TAKE 100 MILLIGRAMS ORAL NEEDED TWICE DAILY Famotidine 20MG Oral Tablet 166933 20 MILLIGRAMS TWICE A DAY ORAL 04/20/2023 12:03 Prescription Detail TAKE 20 MILLIGRAMS ORAL TWICE A DAY Hydrocortisone 2.5% Topical application Cream 378464 1 EACH NEEDED DAILY TOPICAL APPLICATION 04/20/2023 12:03 Prescription Detail 1 EACH TOPICAL APPLICATION NEEDED MARIA L LY Ibuprofen 200MG Oral Tablet 857993 400 MILLIGRAMS NEEDED EVERY 6 HOURS ORAL 04/20/2023 12:03 Prescription Detail TAKE 400 MILLIGRAMS ORAL NEEDED EVERY 6 HOURS Lisinopril 20MG Oral Tablet 489934 20 MILLIGRAMS DAILY ORAL 023 12:03 Prescription Detail TAKE 20 MILLIGRAMS ORAL DAILY Lovastatin 40MG Oral Tablet 350278 40 MILLIGRAMS BEDTIME ORAL 023 12:03 Prescription Detail TAKE 40 MILLIGRAMS ORAL BEDTIME Polyethylene Glycol 3350 17 GM/1 Packet Oral Packet 028248 1 EACH NEEDED DAILY ORAL 04/20/2023 12:03 Prescription Detail TAKE 1 EACH ORAL NEEDED DAILY Simethicone 80MG Oral Tablet, Chewable 086754 80 MILLIGRAMS NEEDED EVERY 6 HOURS ORAL 04/20/2023 12:03 Prescription Detail TAKE 80 MILLIGRAMS ORAL NEEDED EVERY 6 HOURS Vitamin D3 1000 IU Oral Capsule, Liquid Filled 1272869288 1 1000 IU DAILY ORAL 04/20/2023 12:03 Prescription Detail TAKE 1000 IU ORAL DAILY Fluticasone Propionate 0.05MG/1Actuati on Nasal [place] 1243988 1 EACH TWICE A DAY NASAL 04/26/2022 16:41 Prescription Detail SPRAY 1 EACH NASAL TWICE A DAY Memantine HCl 7MG Oral Capsule, Extended Release 510705 7 MILLIGRAMS DAILY ORAL 16:41 Prescription Detail TAKE 7 MILLIGRAMS ORAL DAILY Medications Administered During Visit Unknown or Not Available. Encounters Encounter Diagnosis Diagnosis Code Start Date Low back pain [id number] 08/12/2021 Social History Smoking Status Code Start Date End Date Never smoker 065802664 Patient Decision Aids Unknown or Not Available. Discharge Instructions You were admitted to [facility] on 08/12/2021 09:22 with a principal diagnosis of Other low back pain You were discharged from [facility] on 08/12/2021 09:22 Should you have any questions prior to discharge, please contact a member of your healthcare team. If you have left the hospital and have any questions, please contact your primary care physician. Chief Complaint and Reason For Visit Chief Complaint Date of Onset LBP Function Status Unknown or Not Available. Plan of Care Unknown or Not Available. Referral/Transition of Care Unknown or Not Available.
--- OUTSIDE RECORDS SUMMARY | 2023-05-17 16:55 | XMS_ITS | CCD ---
Author Name Unknown Address [address] [place] [address] [phone] Organization Unknown Address [address] [place] [address] [phone] Care Team Providers Care Drink Mixer Name Role Phone LINDSAY KNOX Attending Physician [phone] LINDSAY KNOX Rounding (Secondary) Physician [phone] Vital Signs Unknown or Not Available. Allergies Allergy Code Allergy Type Reaction Status No Known Drug Allergies 0 No known drug allergies Active Procedures Unknown or Not Available. History of Immunizations Unknown or Not Available. 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 Active Medications Medication Code Dose Units Frequency Route Modificatio n Start Date/Time Augmentin 500MG-125MG Oral Tablet 826416 1 TABLET TWICE A DAY ORAL 04/25/2023 11:10 Prescription Detail TAKE 1 TABLET ORAL TWICE A DAY guaiFENesin DM 10MG/5ML-100MG/ 5ML Oral Syrup 165182 10 mL NEEDED EVERY 4 HOURS ORAL 04/25/2023 11:00 Prescription Detail TAKE 10 mL ORAL NEEDED EVERY 4 HOURS Ondansetron 4MG Oral Tablet 880639 4 MILLIGRAMS NEEDED EVERY 8 HOURS ORAL 04/25/2023 11:00 Prescription Detail TAKE 4 MILLIGRAMS ORAL NEEDED EVERY 8 HOURS Acetaminophen 500MG Oral Tablet 183713 8013 MILLIGRAMS NEEDED EVERY 6 HOURS ORAL 04/20/2023 12:03 Prescription Detail TAKE 1000 MILLIGRAMS ORAL NEEDED EVER Y 6 HOURS Alendronate Sod 70MG Oral Tablet 7965562343 0 70 MILLIGRAMS SUNDAYS ORAL 04/20/2023 12:03 Prescription Detail TAKE 70 MILLIGRAMS ORAL SUNDAYS Artificial Tears Ophthalmic Solution 178398 1 EACH FOUR TIMES A DAY OPHTHALMIC 04/20/2023 12:[address] 1 EACH OPHTHALMIC FOUR TIMES A DAY Docusate 100MG Oral Capsule, Liquid Filled 1052362 100 MILLIGRAMS NEEDED TWICE DAILY ORAL 04/20/2023 12:03 Prescription Detail TAKE 100 MILLIGRAMS ORAL NEEDED TWICE DAILY Famotidine 20MG Oral Tablet 970768 20 MILLIGRAMS TWICE A DAY ORAL 04/20/2023 12:03 Prescription Detail TAKE 20 MILLIGRAMS ORAL TWICE A DAY Hydrocortisone 2.5% Topical application Cream 426867 1 EACH NEEDED DAILY TOPICAL APPLICATION 04/20/2023 12:03 Prescription Detail 1 EACH TOPICAL APPLICATION NEEDED MARIA L LY Ibuprofen 200MG Oral Tablet 499737 400 MILLIGRAMS NEEDED EVERY 6 HOURS ORAL 04/20/2023 12:03 Prescription Detail TAKE 400 MILLIGRAMS ORAL NEEDED EVERY 6 HOURS Lisinopril 20MG Oral Tablet 782027 20 MILLIGRAMS DAILY ORAL 023 12:03 Prescription Detail TAKE 20 MILLIGRAMS ORAL DAILY Lovastatin 40MG Oral Tablet 785877 40 MILLIGRAMS BEDTIME ORAL 023 12:03 Prescription Detail TAKE 40 MILLIGRAMS ORAL BEDTIME Polyethylene Glycol 3350 17 GM/1 Packet Oral Packet 102475 1 EACH NEEDED DAILY ORAL 04/20/2023 12:03 Prescription Detail TAKE 1 EACH ORAL NEEDED DAILY Simethicone 80MG Oral Tablet, Chewable 205321 80 MILLIGRAMS NEEDED EVERY 6 HOURS ORAL 04/20/2023 12:03 Prescription Detail TAKE 80 MILLIGRAMS ORAL NEEDED EVERY 6 HOURS Vitamin D3 1000 IU Oral Capsule, Liquid Filled 8526683303 1 1000 IU DAILY ORAL 04/20/2023 12:03 Prescription Detail TAKE 1000 IU ORAL DAILY Fluticasone Propionate 0.05MG/1Actuati on Nasal [place] 4264217 1 EACH TWICE A DAY NASAL 04/26/2022 16:41 Prescription Detail SPRAY 1 EACH NASAL TWICE A DAY Memantine HCl 7MG Oral Capsule, Extended Release 478893 7 MILLIGRAMS DAILY ORAL 16:41 Prescription Detail TAKE 7 MILLIGRAMS ORAL DAILY Medications Administered During Visit Unknown or Not Available. Encounters Encounter Diagnosis Diagnosis Code Start Date Other fatigue [id number] 01/18/2022 Social History Smoking Status Code Start Date End Date Never smoker [id number] Patient Decision Aids Unknown or Not Available. Discharge Instructions You were admitted to [facility] on 01/18/2022 11:07 with a principal diagnosis of Other fatigue You were discharged from [facility] on 01/18/2022 11:07 Should you have any questions prior to [...]
--- OUTSIDE RECORDS SUMMARY | 2023-05-17 16:55 | XMS_ITS | CCD ---
Author Name Unknown Address [address] [place] [address] [phone] Organization Unknown Address [address] [place] [address] [phone] Care Team Providers Care Procurement Officer Name Role Phone BEAU JOY Attending Physician [phone] BEAU JOY Rounding (Secondary) Physician [phone] Vital Signs Unknown or Not Available. Allergies Allergy Code Allergy Type Reaction Status No Known Drug Allergies 0 No known drug allergies Active Procedures Unknown or Not Available. History of Immunizations Unknown or Not Available. 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 Active Medications Medication Code Dose Units Frequency Route Modificatio n Start Date/Time Augmentin 500MG-125MG Oral Tablet 180274 1 TABLET TWICE A DAY ORAL 04/25/2023 11:10 Prescription Detail TAKE 1 TABLET ORAL TWICE A DAY guaiFENesin DM 10MG/5ML-100MG/ 5ML Oral Syrup 750395 10 mL NEEDED EVERY 4 HOURS ORAL 04/25/2023 11:00 Prescription Detail TAKE 10 mL ORAL NEEDED EVERY 4 HOURS Ondansetron 4MG Oral Tablet 610534 4 MILLIGRAMS NEEDED EVERY 8 HOURS ORAL 04/25/2023 11:00 Prescription Detail TAKE 4 MILLIGRAMS ORAL NEEDED EVERY 8 HOURS Acetaminophen 500MG Oral Tablet 096550 6076 MILLIGRAMS NEEDED EVERY 6 HOURS ORAL 04/20/2023 12:03 Prescription Detail TAKE 1000 MILLIGRAMS ORAL NEEDED EVER Y 6 HOURS Alendronate Sod 70MG Oral Tablet 0748164603 0 70 MILLIGRAMS SUNDAYS ORAL 04/20/2023 12:03 Prescription Detail TAKE 70 MILLIGRAMS ORAL SUNDAYS Artificial Tears Ophthalmic Solution 386103 1 EACH FOUR TIMES A DAY OPHTHALMIC 04/20/2023 12:[address] 1 EACH OPHTHALMIC FOUR TIMES A DAY Docusate 100MG Oral Capsule, Liquid Filled 1497084 100 MILLIGRAMS NEEDED TWICE DAILY ORAL 04/20/2023 12:03 Prescription Detail TAKE 100 MILLIGRAMS ORAL NEEDED TWICE DAILY Famotidine 20MG Oral Tablet 603533 20 MILLIGRAMS TWICE A DAY ORAL 04/20/2023 12:03 Prescription Detail TAKE 20 MILLIGRAMS ORAL TWICE A DAY Hydrocortisone 2.5% Topical application Cream 650077 1 EACH NEEDED DAILY TOPICAL APPLICATION 04/20/2023 12:03 Prescription Detail 1 EACH TOPICAL APPLICATION NEEDED MARIA L LY Ibuprofen 200MG Oral Tablet 720196 400 MILLIGRAMS NEEDED EVERY 6 HOURS ORAL 04/20/2023 12:03 Prescription Detail TAKE 400 MILLIGRAMS ORAL NEEDED EVERY 6 HOURS Lisinopril 20MG Oral Tablet 478349 20 MILLIGRAMS DAILY ORAL 023 12:03 Prescription Detail TAKE 20 MILLIGRAMS ORAL DAILY Lovastatin 40MG Oral Tablet 068257 40 MILLIGRAMS BEDTIME ORAL 023 12:03 Prescription Detail TAKE 40 MILLIGRAMS ORAL BEDTIME Polyethylene Glycol 3350 17 GM/1 Packet Oral Packet 663100 1 EACH NEEDED DAILY ORAL 04/20/2023 12:03 Prescription Detail TAKE 1 EACH ORAL NEEDED DAILY Simethicone 80MG Oral Tablet, Chewable 765919 80 MILLIGRAMS NEEDED EVERY 6 HOURS ORAL 04/20/2023 12:03 Prescription Detail TAKE 80 MILLIGRAMS ORAL NEEDED EVERY 6 HOURS Vitamin D3 1000 IU Oral Capsule, Liquid Filled 5178600037 1 1000 IU DAILY ORAL 04/20/2023 12:03 Prescription Detail TAKE 1000 IU ORAL DAILY Fluticasone Propionate 0.05MG/1Actuati on Nasal [place]y [place] 9562611 1 EACH TWICE A DAY NASAL 04/26/2022 16:41 Prescription Detail SPRAY 1 EACH NASAL TWICE A DAY Memantine HCl 7MG Oral Capsule, Extended Release 859562 7 MILLIGRAMS DAILY ORAL 16:41 Prescription Detail TAKE 7 MILLIGRAMS ORAL DAILY Medications Administered During Visit Unknown or Not Available. Encounters Encounter Diagnosis Diagnosis Code Start Date Migraine without aura, not i ntractable, without status migrainosus [id number] 11/15/2021 Social History Smoking Status Code Start Date End Date Never smoker [id number] Patient Decision Aids Unknown or Not Available. Discharge Instructions You were admitted to [facility] on 11/15/2021 09:21 with a principal diagnosis of Migraine without aura, not intractable, without status migrainosus You were discharged from [facility] on 11/15/2021 00:00 Should you have any questions prior to [...]
--- OUTSIDE RECORDS SUMMARY | 2023-05-17 16:55 | XMS_ITS | CCD ---
Author Name Unknown Address [address] [place] [address] [phone] Organization Unknown Address [address] [place] [address] [phone] Care Team Providers Care Funeral Attendant Name Role Phone LIDA BOWLES Attending Physician [phone] LIDA BOWLES Er Physician [phone] DELROY Morales Registered Nurse [phone] MARY KATE Valaldares Registered Nurse [phone] HDELROY Martines Registered Nurse [phone] Vital Signs Vital Sign Value Unit Date/Time Recent/Initial ? BP Systolic 175 mmHg 03/03/2022 21:01 Initial VS BP Diastolic 95 mmHg 03/03/2022 21:01 Initia l VS Respiratory Rate 17 bpm 03/03/2022 21:01 In itial VS Heart Rate 70 bpm 03/03/2022 21:01 Initial VS O2 % BldC Oximetry 96 % 03/03/2022 21:01 Initial VS Body Temperature 37 degrees 03/03/2022 21:01 In itial VS Body Temperature 36.6 degrees 03/03/2022 22:[address] Recent VS BP Systolic 153 mmHg 03/03/2022 23:15 Most Re cent VS BP Diastolic 72 mmHg 03/03/2022 23:15 Most R ecent VS Respiratory Rate 17 bpm 03/03/2022 23:[address] Recent VS Heart Rate 71 bpm 03/03/2022 23:15 Most Rec ent VS O2 % BldC Oximetry 95 % 03/03/2022 23:15 Most Recent VS Allergies Allergy Code Allergy Type Reaction Status No Known Drug Allergies 0 No known drug allergies Active Procedures Unknown or Not Available. History of Immunizations Unknown or Not Available. 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 04/25/2022 Resolved Compulsive hoarding 386350944 03/06/2022 Resol isael Depression 05024577 03/06/2022 Resolved PTSD 58067412 03/06/2022 Resolved Chronic kidney disease 600741626 03/06/2022 Re solved Results BNP (PRO-B NATRIURETIC PEPTI DE) - Collect Date/Time: 03/03/2022 21:10 Test Name Code Test Result Test Units Test Ref Rang e NT-proBNP 82349-5 120.0 pg/mL L=0.0 H=125 COMPREHENSIVE METABOLIC PANE L (CMP) - Collect Date/Time: 03/03/2022 21:10 Test Name Code Test Result Test Units Test Ref Rang e GLUCOSE 2345-7 159 mg/dL L=70 H=116 BUN 3094-0 19 mg/dL L=6 H=25 CREATININE 2160-0 1.06 mg/dL L=0.51 H=0.95 SODIUM SERUM 2951-2 140 mmol/L L=136 H=145 POTASSIUM SERUM 2823-3 3.8 mmol/L L=3.4 H=5 .2 CHLORIDE SERUM 2075-0 103 mmol/L L=96 H=110 CARBON DIOXIDE (CO2) 2028-9 28 mmol/L L=22 H=34 ANION GAP 69456-6 9.1 mmol/L CALCIUM SERUM 87321-2 9.5 mg/dL L=8.2 H=10. 2 BILIRUBIN TOTAL 1975-2 0.4 mg/dL L=0.0 H=1 .3 ALK. PHOS. 6768-6 40 U/L L=46 H=116 SGOT (AST) 1920-8 14 U/L L=15 H=37 SGPT (ALT) 1742-6 28 U/L L=12 H=78 TOTAL PROTEIN 2885-2 7.8 gm/dL L=6.0 H=8.0 ALBUMIN 1751-7 4.1 gm/dL L=3.4 H=5.0 AGE 77 years eGFR (non-Afr.Amer.) 58966-9 51 mL/min eGFR (Afr-Honduran) 21636-8 61 mL/min LIPASE* - Collect Date/Time: 03/03/2022 21:10 Test Name Code Test Result Test Units Test Ref Rang e LIPASE 148 U/L L=73 H=393 TROPONIN HIGH SENSITIVITY* - Collect Date/Time: 03/03/2022 21:10 Test Name Code Test Result Test Units Test Ref Rang e TROPONIN HS 27.1 pg/mL L=0.0 H=60.4 Specimen seq. ADM. N/A CBC W/ DIFFERENTIAL* - Colle ct Date/Time: 03/03/2022 21:10 Test Name Code Test Result Test Units Test Ref Rang e WBC 6690-2 7.52 th/cmm L=5.00 H=10.00 NEUT % 82.7 % L=40.0 H=80.0 LYMPH % 12.1 % L=10.0 H=50.0 MONO % 85929-4 2.7 % L=2.0 H=12.0 EOS % 1.5 % L=0.0 H=8.0 BASO % 0.3 % L=0.0 H=3.0 IG % 2514-8 0.7 % L=0.0 H=1.1 NRBC % 22992-1 0.0 % L=0.0 H=0.0 NEUT abs count 751-8 6.2 th/cmm L=1.6 H=8. 4 LYMPH abs count 731-0 0.9 th/cmm L=1.5 H=4 .0 MONO abs count 742-7 0.2 th/cmm L=0.2 H=1. 0 EOS abs count 711-2 0.1 th/cmm L=0.0 H=0.5 BASO abs count 704-7 0.0 th/cmm L=0.0 H=0. 2 IG abs count 60774-0 0.1 th/cmm L=0.0 H=0.1 NRBC abs count 45358-8 0.0 mil/cmm L=0.0 H=0. 0 RBC 789-8 4.92 mil/cmm L=3.90 H=5.40 HEMOGLOBIN 718-7 13.5 gm/dL L=12.0 H=16.0 HEMATOCRIT 4544-3 42 % L=37 H=47 MCV 787-2 85 fL L=82 H=92 MCH 785-6 27.4 pg L=27.0 H=31.0 MCHC 786-4 32.5 % L=32.0 H=36.0 RDW-SD 788-0 45.0 fL L=39.0 H=49.0 PLATELET COUNT 777-3 131 th/cmm L=150 H=45 0 Hypochromia 1+ N/A KATIE COVID RHEONIX* - Heri ect Date/Time: 03/03/2022 23:24 Test Name Code Test Result Test Units Test Ref [facility]- 04289-1 INPATIENT/ED N/A SARS COV2 RNA: 73536-8 NEGATIVE N/A REFERENCE RANGE: NEGAT Active Medications Medications Administered During Visit Medication Dose Units Frequency Route Date/Time of Last Dose ALUM/MAG/SIM SUSP: 2400/2400/240MG/30ML 30 ML X1 PO 022 21:33 Encounters Encounter Diagnosis Diagnosis Code Start Date Unspecified abdominal pain R109 03/03 Social History Smoking Status Code Start Date End Date Never smoker [id number] Patient Decision Aids Unknown or Not Available. Discharge Instructions You were admitted to [facility] on 03/03/2022 20:59 with a principal diagnosis of Unspecified abdominal pain You had the following tests done:KATIE COVID RHEONIX*BNP (PRO-B NATRIURETIC PEPTIDE)CBC W/ DIFFERENTIAL*COMPREHENSIVE METABOLIC PANEL (CMP)LIPASE*TROPONIN HIGH SENSITIVITY* You were discharged from [facility] on 03/03/2022 23:20 Should you have any questions prior to discharge, please contact a member of your healthcare team. If you have left the hospital and have any questions, please contact your primary care physician. Chief Complaint and Reason For Visit Chief Complaint Date of Onset ELEVATED BP AND CHEST PAIN Function Status Unknown or Not Available. Plan of Care Unknown or Not Available. Referral/Transition of Care Unknown or Not Available.
--- OUTSIDE RECORDS SUMMARY | 2023-05-17 16:55 | XMS_ITS | CCD ---
Author Name Unknown Address [address] [place] [address] [phone] Organization Unknown Address [address] [place] [address] [phone] Care Team Providers Care Knitting Machine Mechanic Name Role Phone LINDSAY KNOX Attending Physician [phone] LINDSAY KNOX Rounding (Secondary) Physician [phone] Vital Signs Unknown or Not Available. Allergies Allergy Code Allergy Type Reaction Status No Known Drug Allergies 0 No known drug allergies Active Procedures Unknown or Not Available. History of Immunizations Unknown or Not Available. 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 Active Medications Medication Code Dose Units Frequency Route Modificatio n Start Date/Time Augmentin 500MG-125MG Oral Tablet 054645 1 TABLET TWICE A DAY ORAL 04/25/2023 11:10 Prescription Detail TAKE 1 TABLET ORAL TWICE A DAY guaiFENesin DM 10MG/5ML-100MG/ 5ML Oral Syrup 584628 10 mL NEEDED EVERY 4 HOURS ORAL 04/25/2023 11:00 Prescription Detail TAKE 10 mL ORAL NEEDED EVERY 4 HOURS Ondansetron 4MG Oral Tablet 598614 4 MILLIGRAMS NEEDED EVERY 8 HOURS ORAL 04/25/2023 11:00 Prescription Detail TAKE 4 MILLIGRAMS ORAL NEEDED EVERY 8 HOURS Acetaminophen 500MG Oral Tablet 199569 4262 MILLIGRAMS NEEDED EVERY 6 HOURS ORAL 04/20/2023 12:03 Prescription Detail TAKE 1000 MILLIGRAMS ORAL NEEDED EVER Y 6 HOURS Alendronate Sod 70MG Oral Tablet 6272464028 0 70 MILLIGRAMS SUNDAYS ORAL 04/20/2023 12:03 Prescription Detail TAKE 70 MILLIGRAMS ORAL SUNDAYS Artificial Tears Ophthalmic Solution 665973 1 EACH FOUR TIMES A DAY OPHTHALMIC 04/20/2023 12:[address] 1 EACH OPHTHALMIC FOUR TIMES A DAY Docusate 100MG Oral Capsule, Liquid Filled 3767372 100 MILLIGRAMS NEEDED TWICE DAILY ORAL 04/20/2023 12:03 Prescription Detail TAKE 100 MILLIGRAMS ORAL NEEDED TWICE DAILY Famotidine 20MG Oral Tablet 993267 20 MILLIGRAMS TWICE A DAY ORAL 04/20/2023 12:03 Prescription Detail TAKE 20 MILLIGRAMS ORAL TWICE A DAY Hydrocortisone 2.5% Topical application Cream 840795 1 EACH NEEDED DAILY TOPICAL APPLICATION 04/20/2023 12:03 Prescription Detail 1 EACH TOPICAL APPLICATION NEEDED MARIA L LY Ibuprofen 200MG Oral Tablet 320623 400 MILLIGRAMS NEEDED EVERY 6 HOURS ORAL 04/20/2023 12:03 Prescription Detail TAKE 400 MILLIGRAMS ORAL NEEDED EVERY 6 HOURS Lisinopril 20MG Oral Tablet 319836 20 MILLIGRAMS DAILY ORAL 023 12:03 Prescription Detail TAKE 20 MILLIGRAMS ORAL DAILY Lovastatin 40MG Oral Tablet 778877 40 MILLIGRAMS BEDTIME ORAL 023 12:03 Prescription Detail TAKE 40 MILLIGRAMS ORAL BEDTIME Polyethylene Glycol 3350 17 GM/1 Packet Oral Packet 400067 1 EACH NEEDED DAILY ORAL 04/20/2023 12:03 Prescription Detail TAKE 1 EACH ORAL NEEDED DAILY Simethicone 80MG Oral Tablet, Chewable 641050 80 MILLIGRAMS NEEDED EVERY 6 HOURS ORAL 04/20/2023 12:03 Prescription Detail TAKE 80 MILLIGRAMS ORAL NEEDED EVERY 6 HOURS Vitamin D3 1000 IU Oral Capsule, Liquid Filled 1601048509 1 1000 IU DAILY ORAL 04/20/2023 12:03 Prescription Detail TAKE 1000 IU ORAL DAILY Fluticasone Propionate 0.05MG/1Actuati on Nasal [place] 0148922 1 EACH TWICE A DAY NASAL 04/26/2022 16:41 Prescription Detail SPRAY 1 EACH NASAL TWICE A DAY Memantine HCl 7MG Oral Capsule, Extended Release 330866 7 MILLIGRAMS DAILY ORAL 16:41 Prescription Detail TAKE 7 MILLIGRAMS ORAL DAILY Medications Administered During Visit Unknown or Not Available. Encounters Encounter Diagnosis Diagnosis Code Start Date Procedure and treatment not carried out for othe r reasons Z538 01/04/2022 Social History Smoking Status Code Start Date End Date Never smoker 099115798 Patient Decision Aids Unknown or Not Available. Discharge Instructions You were admitted to [facility] on 01/04/2022 14:39 with a principal diagnosis of Procedure and treatment not carried out for other reasons You were discharged from [facility] on 01/04/2022 15:19 Should you have any questions prior to [...]
--- OUTSIDE RECORDS SUMMARY | 2023-05-17 16:55 | XMS_ITS | CCD ---
Author Name Unknown Address [address] [place] [address] [phone] Organization Unknown Address [address] [place] [address] [phone] Care Team Providers Care Head Correction Officer Name Role Phone GARRET MARTINEZ Attending Physician [phone] Vital Signs Unknown or Not Available. Allergies Allergy Code Allergy Type Reaction Status No Known Drug Allergies 0 No known drug allergies Active Procedures Unknown or Not Available. History of Immunizations Unknown or Not Available. 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 255287375 04/25/2022 Resolved Compulsive hoarding 145758754 03/06/2022 Resol isael Depression 92458360 03/06/2022 Resolved PTSD 94543974 03/06/2022 Resolved Chronic kidney disease 946520771 03/06/2022 Re solved Results KATIE GUZMAN* - Heri ect Date/Time: 11/18/2021 10:10 Test Name Code Test Result Test Units Test Ref Rang e Tier- 18988-7 PRE-OP N/A SARS COV2 RNA: 88918-0 NEGATIVE N/A REFERENCE RANGE: NEGAT Active Medications Medication Code Dose Units Frequency Route Modificatio n Start Date/Time Augmentin 500MG-125MG Oral Tablet 593632 1 TABLET TWICE A DAY ORAL 04/25/2023 11:10 Prescription Detail TAKE 1 TABLET ORAL TWICE A DAY guaiFENesin DM 10MG/5ML-100MG/ 5ML Oral Syrup 471044 10 mL NEEDED EVERY 4 HOURS ORAL 04/25/2023 11:00 Prescription Detail TAKE 10 mL ORAL NEEDED EVERY 4 HOURS Ondansetron 4MG Oral Tablet 010900 4 MILLIGRAMS NEEDED EVERY 8 HOURS ORAL 04/25/2023 11:00 Prescription Detail TAKE 4 MILLIGRAMS ORAL NEEDED EVERY 8 HOURS Acetaminophen 500MG Oral Tablet 270654 3907 MILLIGRAMS NEEDED EVERY 6 HOURS ORAL 04/20/2023 12:03 Prescription Detail TAKE 1000 MILLIGRAMS ORAL NEEDED EVER Y 6 HOURS Alendronate Sod 70MG Oral Tablet 7445381507 0 70 MILLIGRAMS SUNDAYS ORAL 04/20/2023 12:03 Prescription Detail TAKE 70 MILLIGRAMS ORAL SUNDAYS Artificial Tears Ophthalmic Solution 033594 1 EACH FOUR TIMES A DAY OPHTHALMIC 04/20/2023 12:[address] 1 EACH OPHTHALMIC FOUR TIMES A DAY Docusate 100MG Oral Capsule, Liquid Filled 5879245 100 MILLIGRAMS NEEDED TWICE DAILY ORAL 04/20/2023 12:03 Prescription Detail TAKE 100 MILLIGRAMS ORAL NEEDED TWICE DAILY Famotidine 20MG Oral Tablet 333684 20 MILLIGRAMS TWICE A DAY ORAL 04/20/2023 12:03 Prescription Detail TAKE 20 MILLIGRAMS ORAL TWICE A DAY Hydrocortisone 2.5% Topical application Cream 028050 1 EACH NEEDED DAILY TOPICAL APPLICATION 04/20/2023 12:03 Prescription Detail 1 EACH TOPICAL APPLICATION NEEDED MARIA L LY Ibuprofen 200MG Oral Tablet 857808 400 MILLIGRAMS NEEDED EVERY 6 HOURS ORAL 04/20/2023 12:03 Prescription Detail TAKE 400 MILLIGRAMS ORAL NEEDED EVERY 6 HOURS Lisinopril 20MG Oral Tablet 959605 20 MILLIGRAMS DAILY ORAL 023 12:03 Prescription Detail TAKE 20 MILLIGRAMS ORAL DAILY Lovastatin 40MG Oral Tablet 051694 40 MILLIGRAMS BEDTIME ORAL 023 12:03 Prescription Detail TAKE 40 MILLIGRAMS ORAL BEDTIME Polyethylene Glycol 3350 17 GM/1 Packet Oral Packet 146103 1 EACH NEEDED DAILY ORAL 04/20/2023 12:03 Prescription Detail TAKE 1 EACH ORAL NEEDED DAILY Simethicone 80MG Oral Tablet, Chewable 947555 80 MILLIGRAMS NEEDED EVERY 6 HOURS ORAL 04/20/2023 12:03 Prescription Detail TAKE 80 MILLIGRAMS ORAL NEEDED EVERY 6 HOURS Vitamin D3 1000 IU Oral Capsule, Liquid Filled 5623928258 1 1000 IU DAILY ORAL 04/20/2023 12:03 Prescription Detail TAKE 1000 IU ORAL DAILY Fluticasone Propionate 0.05MG/1Actuati on Nasal [place] 1193925 1 EACH TWICE A DAY NASAL 04/26/2022 16:41 Prescription Detail SPRAY 1 EACH NASAL TWICE A DAY Memantine HCl 7MG Oral Capsule, Extended Release 272440 7 MILLIGRAMS DAILY ORAL 16:41 Prescription Detail TAKE 7 MILLIGRAMS ORAL DAILY Medications Administered During Visit Unknown or Not Available. Encounters Encounter Diagnosis Diagnosis Code Start Date Pre-surgery testing [id number] 11/18/2021 Social History Smoking Status Code Start Date End Date Never smoker 695610773 Patient Decision Aids Unknown or Not Available. Discharge Instructions You were admitted to [facility] on 11/18/2021 16:00 with a principal diagnosis of Encounter for preprocedural laboratory examination You had the following tests done:KATIE COVID RHEONIX* You were discharged from [facility] on 11/18/2021 16:00 Should you have any questions prior to [...]
--- OUTSIDE RECORDS SUMMARY | 2023-05-17 16:55 | XMS_ITS | CCD ---
Author Name Unknown Address [address] [place] [address] [id number] Organization Unknown Address [address] [place] [address] [id number] Care Team Providers Care Assistant Film Editor Name Role Phone DAVION SMITH Attending Physician [phone] Vital Signs Vital Sign Value Unit Date/Time Recent/Initial ? BP Systolic 109 mmHg 08/08/2021 12:55 Initial VS BP Diastolic 52 mmHg 08/08/2021 12:55 Initia l VS Respiratory Rate 16 bpm 08/08/2021 12:55 In itial VS Heart Rate 60 bpm 08/08/2021 12:55 Initial VS O2 % BldC Oximetry 95 % 08/08/2021 12:55 Initial VS Body Temperature 36.4 degrees 08/08/2021 12:55 In itial VS Allergies Allergy Code Allergy Type Reaction Status No Known Drug Allergies 0 No known drug allergies Active Procedures Procedure Code Procedure Type Date Colsc Flx w/[place] [address] CPT 08/08/2021 Colonoscopy, Flexible, Proxi mal To Splenic Flexure; w/Bx, Single/Multiple 06114 CPT 08/08/2021 History of Immunizations Unknown or Not Available. 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 Active Medications Medication Code Dose Units Frequency Route Modificatio n Start Date/Time Augmentin 500MG-125MG Oral Tablet 464718 1 TABLET TWICE A DAY ORAL 04/25/2023 11:10 Prescription Detail TAKE 1 TABLET ORAL TWICE A DAY guaiFENesin DM 10MG/5ML-100MG/ 5ML Oral Syrup 725298 10 mL NEEDED EVERY 4 HOURS ORAL 04/25/2023 11:00 Prescription Detail TAKE 10 mL ORAL NEEDED EVERY 4 HOURS Ondansetron 4MG Oral Tablet 308813 4 MILLIGRAMS NEEDED EVERY 8 HOURS ORAL 04/25/2023 11:00 Prescription Detail TAKE 4 MILLIGRAMS ORAL NEEDED EVERY 8 HOURS Acetaminophen 500MG Oral Tablet 858723 3149 MILLIGRAMS NEEDED EVERY 6 HOURS ORAL 04/20/2023 12:03 Prescription Detail TAKE 1000 MILLIGRAMS ORAL NEEDED EVER Y 6 HOURS Alendronate Sod 70MG Oral Tablet 4220969052 0 70 MILLIGRAMS SUNDAYS ORAL 04/20/2023 12:03 Prescription Detail TAKE 70 MILLIGRAMS ORAL SUNDAYS Artificial Tears Ophthalmic Solution 080548 1 EACH FOUR TIMES A DAY OPHTHALMIC 04/20/2023 12:[address] EACH OPHTHALMIC FOUR TIMES A DAY Docusate 100MG Oral Capsule, Liquid Filled 5407283 100 MILLIGRAMS NEEDED TWICE DAILY ORAL 04/20/2023 12:03 Prescription Detail TAKE 100 MILLIGRAMS ORAL NEEDED TWICE DAILY Famotidine 20MG Oral Tablet 939758 20 MILLIGRAMS TWICE A DAY ORAL 04/20/2023 12:03 Prescription Detail TAKE 20 MILLIGRAMS ORAL TWICE A DAY Hydrocortisone 2.5% Topical application Cream 147700 1 EACH NEEDED DAILY TOPICAL APPLICATION 04/20/2023 12:03 Prescription Detail 1 EACH TOPICAL APPLICATION NEEDED MARIA L LY Ibuprofen 200MG Oral Tablet 353733 400 MILLIGRAMS NEEDED EVERY 6 HOURS ORAL 04/20/2023 12:03 Prescription Detail TAKE 400 MILLIGRAMS ORAL NEEDED EVERY 6 HOURS Lisinopril 20MG Oral Tablet 929959 20 MILLIGRAMS DAILY ORAL 023 12:03 Prescription Detail TAKE 20 MILLIGRAMS ORAL DAILY Lovastatin 40MG Oral Tablet 710807 40 MILLIGRAMS BEDTIME ORAL 023 12:03 Prescription Detail TAKE 40 MILLIGRAMS ORAL BEDTIME Polyethylene Glycol 3350 17 GM/1 Packet Oral Packet 567877 1 EACH NEEDED DAILY ORAL 04/20/2023 12:03 Prescription Detail TAKE 1 EACH ORAL NEEDED DAILY Simethicone 80MG Oral Tablet, Chewable 372486 80 MILLIGRAMS NEEDED EVERY 6 HOURS ORAL 04/20/2023 12:03 Prescription Detail TAKE 80 MILLIGRAMS ORAL NEEDED EVERY 6 HOURS Vitamin D3 1000 IU Oral Capsule, Liquid Filled 8906807253 1 1000 IU DAILY ORAL 04/20/2023 12:03 Prescription Detail TAKE 1000 IU ORAL DAILY Fluticasone Propionate 0.05MG/1Actuati on Nasal [place] 8587042 1 EACH TWICE A DAY NASAL 04/26/2022 16:41 Prescription Detail SPRAY 1 EACH NASAL TWICE A DAY Memantine HCl 7MG Oral Capsule, Extended Release 303687 7 MILLIGRAMS DAILY ORAL 16:41 Prescription Detail TAKE 7 MILLIGRAMS ORAL DAILY Medications Administered During Visit Unknown or Not Available. Encounters Encounter Diagnosis Diagnosis Code Start Date Encounter for screening for malignant neoplasm o f colon [id number] 08/08/2021 Social History Smoking Status Code Start Date End Date Never smoker [id number] Patient Decision Aids Unknown or Not Available. Discharge Instructions You were admitted to [facility] on 08/08/2021 10:40 with a principal diagnosis of Encounter for screening for malignant neoplasm of colon You had the following procedures done:Colsc Flx w/Rmvl Of Tumor Polyp Lesion Snare TqColonoscopy, Flexible, Proximal To Splenic Flexure; w/Bx, Single/Multiple You were discharged from [facility] on 08/08/2021 13:40 Should you have any questions prior to [...]
--- OUTSIDE RECORDS SUMMARY | 2023-05-17 16:56 | XMS_ITS | CCD ---
Author Name Unknown Address [address] [place] [address] [id number] Organization Unknown Address [address] [place] [address] [phone] Care Team Providers Care Android Architect Name Role Phone AMANDA MEHTA Attending Physician [phone] Vital Signs Unknown or Not Available. Allergies Allergy Code Allergy Type Reaction Status No Known Drug Allergies 0 No known drug allergies Active Procedures Unknown or Not Available. History of Immunizations Unknown or Not Available. Problems Problem Code Start Date Resolved Date Status Nausea with vomiting 60896323 Acti ve Hypertension 47224098 Active Pneumonia 620523681 Active Hypoxia 556941800 Active Fever 830450607 Active Results Unknown or Not Available. Active Medications Medication Code Dose Units Frequency Route Modificatio n Start Date/Time Augmentin 500MG-125MG Oral Tablet 055572 1 TABLET TWICE A DAY ORAL 04/25/2023 11:10 Prescription Detail TAKE 1 TABLET ORAL TWICE A DAY guaiFENesin DM 10MG/5ML-100MG/ 5ML Oral Syrup 402691 10 mL NEEDED EVERY 4 HOURS ORAL 04/25/2023 11:00 Prescription Detail TAKE 10 mL ORAL NEEDED EVERY 4 HOURS Ondansetron 4MG Oral Tablet 026447 4 MILLIGRAMS NEEDED EVERY 8 HOURS ORAL 04/25/2023 11:00 Prescription Detail TAKE 4 MILLIGRAMS ORAL NEEDED EVERY 8 HOURS Acetaminophen 500MG Oral Tablet 379464 1511 MILLIGRAMS NEEDED EVERY 6 HOURS ORAL 04/20/2023 12:03 Prescription Detail TAKE 1000 MILLIGRAMS ORAL NEEDED EVER Y 6 HOURS Alendronate Sod 70MG Oral Tablet 4611428851 0 70 MILLIGRAMS SUNDAYS ORAL 04/20/2023 12:03 Prescription Detail TAKE 70 MILLIGRAMS ORAL SUNDAYS Artificial Tears Ophthalmic Solution 213519 1 EACH FOUR TIMES A DAY OPHTHALMIC 04/20/2023 12:[address] 1 EACH OPHTHALMIC FOUR TIMES A DAY Docusate 100MG Oral Capsule, Liquid Filled 8004322 100 MILLIGRAMS NEEDED TWICE DAILY ORAL 04/20/2023 12:03 Prescription Detail TAKE 100 MILLIGRAMS ORAL NEEDED TWICE DAILY Famotidine 20MG Oral Tablet 641397 20 MILLIGRAMS TWICE A DAY ORAL 04/20/2023 12:03 Prescription Detail TAKE 20 MILLIGRAMS ORAL TWICE A DAY Hydrocortisone 2.5% Topical application Cream 640055 1 EACH NEEDED DAILY TOPICAL APPLICATION 04/20/2023 12:03 Prescription Detail 1 EACH TOPICAL APPLICATION NEEDED MARIA L LY Ibuprofen 200MG Oral Tablet 814289 400 MILLIGRAMS NEEDED EVERY 6 HOURS ORAL 04/20/2023 12:03 Prescription Detail TAKE 400 MILLIGRAMS ORAL NEEDED EVERY 6 HOURS Lisinopril 20MG Oral Tablet 688463 20 MILLIGRAMS DAILY ORAL 023 12:03 Prescription Detail TAKE 20 MILLIGRAMS ORAL DAILY Lovastatin 40MG Oral Tablet 631097 40 MILLIGRAMS BEDTIME ORAL 023 12:03 Prescription Detail TAKE 40 MILLIGRAMS ORAL BEDTIME Polyethylene Glycol 3350 17 GM/1 Packet Oral Packet 837340 1 EACH NEEDED DAILY ORAL 04/20/2023 12:03 Prescription Detail TAKE 1 EACH ORAL NEEDED DAILY Simethicone 80MG Oral Tablet, Chewable 504016 80 MILLIGRAMS NEEDED EVERY 6 HOURS ORAL 04/20/2023 12:03 Prescription Detail TAKE 80 MILLIGRAMS ORAL NEEDED EVERY 6 HOURS Vitamin D3 1000 IU Oral Capsule, Liquid Filled 8716176885 1 1000 IU DAILY ORAL 04/20/2023 12:03 Prescription Detail TAKE 1000 IU ORAL DAILY Fluticasone Propionate 0.05MG/1Actuati on Nasal Harrah 7853656 1 EACH TWICE A DAY NASAL 04/26/2022 16:41 Prescription Detail SPRAY 1 EACH NASAL TWICE A DAY Memantine HCl 7MG Oral Capsule, Extended Release 474465 7 MILLIGRAMS DAILY ORAL 16:41 Prescription Detail TAKE 7 MILLIGRAMS ORAL DAILY Medications Administered During Visit Unknown or Not Available. Encounters Unknown or Not Available. Social History Smoking Status Code Start Date End Date Never smoker [id number] Patient Decision Aids Unknown or Not Available. Discharge Instructions You were admitted to [facility] on 04/22/2023 02:59 You were discharged from [facility] on 04/23/2023 12:16 Should you have any questions prior to [...]
--- OUTSIDE RECORDS SUMMARY | 2023-05-17 16:56 | XMS_ITS | CCD ---
Author Name Unknown Address [address] [place] [address] [phone] Organization Unknown Address [address] [place] [address] [phone] Care Team Providers Care Milled Lumber Grader Name Role Phone AMANDA MEHTA Attending Physician [phone] Vital Signs Unknown or Not Available. Allergies Allergy Code Allergy Type Reaction Status No Known Drug Allergies 0 No known drug allergies Active Procedures Unknown or Not Available. History of Immunizations Unknown or Not Available. Problems Problem Code Start Date Resolved Date Status Nausea with vomiting 73480372 Acti ve Hypertension 39002012 Active Pneumonia 553902748 Active Hypoxia 589111853 Active Fever 260500956 Active Results Unknown or Not Available. Active Medications Medication Code Dose Units Frequency Route Modificatio n Start Date/Time Augmentin 500MG-125MG Oral Tablet 302245 1 TABLET TWICE A DAY ORAL 04/25/2023 11:10 Prescription Detail TAKE 1 TABLET ORAL TWICE A DAY guaiFENesin DM 10MG/5ML-100MG/ 5ML Oral Syrup 727207 10 mL NEEDED EVERY 4 HOURS ORAL 04/25/2023 11:00 Prescription Detail TAKE 10 mL ORAL NEEDED EVERY 4 HOURS Ondansetron 4MG Oral Tablet 670256 4 MILLIGRAMS NEEDED EVERY 8 HOURS ORAL 04/25/2023 11:00 Prescription Detail TAKE 4 MILLIGRAMS ORAL NEEDED EVERY 8 HOURS Acetaminophen 500MG Oral Tablet 756394 6185 MILLIGRAMS NEEDED EVERY 6 HOURS ORAL 04/20/2023 12:03 Prescription Detail TAKE 1000 MILLIGRAMS ORAL NEEDED EVER Y 6 HOURS Alendronate Sod 70MG Oral Tablet 3317579935 0 70 MILLIGRAMS SUNDAYS ORAL 04/20/2023 12:03 Prescription Detail TAKE 70 MILLIGRAMS ORAL SUNDAYS Artificial Tears Ophthalmic Solution 214390 1 EACH FOUR TIMES A DAY OPHTHALMIC 04/20/2023 12:[address] 1 EACH OPHTHALMIC FOUR TIMES A DAY Docusate 100MG Oral Capsule, Liquid Filled 9879042 100 MILLIGRAMS NEEDED TWICE DAILY ORAL 04/20/2023 12:03 Prescription Detail TAKE 100 MILLIGRAMS ORAL NEEDED TWICE DAILY Famotidine 20MG Oral Tablet 237150 20 MILLIGRAMS TWICE A DAY ORAL 04/20/2023 12:03 Prescription Detail TAKE 20 MILLIGRAMS ORAL TWICE A DAY Hydrocortisone 2.5% Topical application Cream 896186 1 EACH NEEDED DAILY TOPICAL APPLICATION 04/20/2023 12:03 Prescription Detail 1 EACH TOPICAL APPLICATION NEEDED MARIA L LY Ibuprofen 200MG Oral Tablet 603106 400 MILLIGRAMS NEEDED EVERY 6 HOURS ORAL 04/20/2023 12:03 Prescription Detail TAKE 400 MILLIGRAMS ORAL NEEDED EVERY 6 HOURS Lisinopril 20MG Oral Tablet 763708 20 MILLIGRAMS DAILY ORAL 023 12:03 Prescription Detail TAKE 20 MILLIGRAMS ORAL DAILY Lovastatin 40MG Oral Tablet 226683 40 MILLIGRAMS BEDTIME ORAL 023 12:03 Prescription Detail TAKE 40 MILLIGRAMS ORAL BEDTIME Polyethylene Glycol 3350 17 GM/1 Packet Oral Packet 693162 1 EACH NEEDED DAILY ORAL 04/20/2023 12:03 Prescription Detail TAKE 1 EACH ORAL NEEDED DAILY Simethicone 80MG Oral Tablet, Chewable 526730 80 MILLIGRAMS NEEDED EVERY 6 HOURS ORAL 04/20/2023 12:03 Prescription Detail TAKE 80 MILLIGRAMS ORAL NEEDED EVERY 6 HOURS Vitamin D3 1000 IU Oral Capsule, Liquid Filled 0013666018 1 1000 IU DAILY ORAL 04/20/2023 12:03 Prescription Detail TAKE 1000 IU ORAL DAILY Fluticasone Propionate 0.05MG/1Actuati on Nasal Stephan 8478706 1 EACH TWICE A DAY NASAL 04/26/2022 16:41 Prescription Detail SPRAY 1 EACH NASAL TWICE A DAY Memantine HCl 7MG Oral Capsule, Extended Release 449679 7 MILLIGRAMS DAILY ORAL 16:41 Prescription Detail TAKE 7 MILLIGRAMS ORAL DAILY Medications Administered During Visit Unknown or Not Available. Encounters Encounter Diagnosis Diagnosis Code Start Date Pneumonia, unspecified organism J189 04/22/2023 Social History Smoking Status Code Start Date End Date Never smoker [id number] Patient Decision Aids Unknown or Not Available. Discharge Instructions You were admitted to [facility] on 04/22/2023 00:43 with a principal diagnosis of Pneumonia, unspecified organism You were discharged from [facility] on 04/25/2023 00:43 Should you have any questions prior to [...]
--- OUTSIDE RECORDS SUMMARY | 2023-05-17 16:56 | XMS_ITS | CCD ---
Author Name Unknown Address [address] [place] [address] [phone] Organization Unknown Address [address] [place] [address] [phone] Care Team Providers Care Asset Protection Representative Name Role Phone AMANDA MEHTA Attending Physician [phone] LIDA BOWLES Er Physician 7 [phone] DARION Stearns Registered Nurse [phone] Vital Signs Vital Sign Value Unit Date/Time Recent/Initial ? BMI (Body Mass Index) 29.29 kg/m^2 04/22/2023 02: 11 Initial VS Weight Measured 150 lbs 04/22/2023 02:11 Ini tial VS Height 60 in 04/22/2023 02:11 Initial VS BSA (Body Surface Area) 1.7 m^2 04/22/2023 0 2:11 Initial VS BP Systolic 138 mmHg 04/22/2023 02:11 Initial VS BP Diastolic 83 mmHg 04/22/2023 02:11 Initia l VS Respiratory Rate 20 bpm 04/22/2023 02:11 In itial VS Heart Rate 83 bpm 04/22/2023 02:11 Initial VS O2 % BldC Oximetry 98 % 04/22/2023 02:11 Initial VS Body Temperature 37.1 degrees 04/22/2023 02:11 In itial VS BMI (Body Mass Index) 25.37 kg/m^2 04/22/2023 04: 24 Most Recent VS Weight Measured 129.9 lbs 04/22/2023 04:24 Mos t Recent VS Height 60 in 04/22/2023 04:24 Most Rec ent VS BSA (Body Surface Area) 1.58 m^2 04/22/2023 0 4:24 Most Recent VS BP Systolic 139 mmHg 04/25/2023 07:31 Most Re cent VS BP Diastolic 73 mmHg 04/25/2023 07:31 Most R ecent VS Respiratory Rate 18 bpm 04/25/2023 07:[address] Recent VS Heart Rate 81 bpm 04/25/2023 07:31 Most Rec ent VS O2 % BldC Oximetry 96 % 04/25/2023 07:31 Most Recent VS Body Temperature 36.3 degrees 04/25/2023 07:[address] Recent VS Allergies Allergy Code Allergy Type Reaction Status No Known Drug Allergies 0 No known drug allergies Active Procedures Unknown or Not Available. History of Immunizations Unknown or Not Available. Problems Problem Code Start Date Resolved Date Status Nausea with vomiting [id number] Acti ve Hypertension 99000866 Active Pneumonia [id number] Active Hypoxia [id number] Active Fever 559300827 Active Results BASIC METABOLIC PANEL (BMP) - Collect Date/Time: 04/24/2023 06:30 Test Name Code Test Result Test Units Test Ref Rang e GLUCOSE 2345-7 100 mg/dL L=70 H=116 BUN 3094-0 16 mg/dL L=6 H=25 CREATININE 2160-0 0.66 mg/dL L=0.51 H=0.95 SODIUM SERUM 2951-2 142 mmol/L L=136 H=145 POTASSIUM SERUM 2823-3 3.4 mmol/L L=3.4 H=5 .2 CHLORIDE SERUM 2075-0 107 mmol/L L=96 H=110 CARBON DIOXIDE (CO2) 2028-9 26 mmol/L L=22 H=34 ANION GAP 52941-9 8.6 mmol/L CALCIUM SERUM 93710-9 8.1 mg/dL L=8.2 H=10. 2 AGE 78 years eGFR (non-Afr.Amer.) 33737-3 87 mL/min eGFR (Afr-Azerbaijani) 45292-7 105 mL/min BASIC METABOLIC PANEL (BMP) - Collect Date/Time: 04/23/2023 06:40 Test Name Code Test Result Test Units Test Ref Rang e GLUCOSE 2345-7 95 mg/dL L=70 H=116 BUN 3094-0 16 mg/dL L=6 H=25 CREATININE 2160-0 0.71 mg/dL L=0.51 H=0.95 SODIUM SERUM 2951-2 143 mmol/L L=136 H=145 POTASSIUM SERUM 2823-3 3.6 mmol/L L=3.4 H=5 .2 CHLORIDE SERUM 2075-0 108 mmol/L L=96 H=110 CARBON DIOXIDE (CO2) 8-9 26 mmol/L L=22 H=34 ANION GAP 45620-1 9.1 mmol/L CALCIUM SERUM 74363-6 7.9 mg/dL L=8.2 H=10. 2 AGE 78 years eGFR (non-Afr.Amer.) 33417-7 80 mL/min eGFR (Afr-Azerbaijani) 83470-1 97 mL/min C REACTIVE PROTEIN HIGH SENS ITIVITY* - Collect Date/Time: 04/24/2023 06:30 Test Name Code Test Result Test Units Test Ref Rang e CRP-HIGH SENS. 90832-1 141.13 mg/L L=0.00 H=3 .00 CRP-HIGH SENS 63980-6 14.11 mg/dL L=0.00 H=0. 30 COMPREHENSIVE METABOLIC PANE L (CMP) - Collect Date/Time: 04/25/2023 06:40 Test Name Code Test Result Test Units Test Ref Rang e GLUCOSE 2345-7 103 mg/dL L=70 H=116 BUN 3094-0 18 mg/dL L=6 H=25 CREATININE 2160-0 0.73 mg/dL L=0.51 H=0.95 SODIUM SERUM 2951-2 142 mmol/L L=136 H=145 POTASSIUM SERUM 2823-3 3.5 mmol/L L=3.4 H=5 .2 CHLORIDE SERUM 2075-0 105 mmol/L L=96 H=110 CARBON DIOXIDE (CO2) 8-9 28 mmol/L L=22 H=34 ANION GAP 91805-3 8.7 mmol/L CALCIUM SERUM 94857-5 8.6 mg/dL L=8.2 H=10. 2 BILIRUBIN TOTAL 1975-2 0.3 mg/dL L=0.0 H=1 .3 ALK. PHOS. 6768-6 39 U/L L=46 H=116 SGOT (AST) 1920-8 46 U/L L=15 H=37 SGPT (ALT) 1742-6 72 U/L L=12 H=78 TOTAL PROTEIN 2885-2 6.3 gm/dL L=6.0 H=8.0 ALBUMIN 1751-7 2.4 gm/dL L=3.4 H=5.0 AGE 78 years eGFR (non-Afr.Amer.) 40188-4 78 mL/min eGFR (Afr-Azerbaijani) 98266-0 94 mL/min COMPREHENSIVE METABOLIC PANE L (CMP) - Collect Date/Time: 04/22/2023 02:10 Test Name Code Test Result Test Units Test Ref Rang e GLUCOSE 2345-7 135 mg/dL L=70 H=116 BUN 3094-0 27 mg/dL L=6 H=25 CREATININE 2160-0 0.95 mg/dL L=0.51 H=0.95 SODIUM SERUM 2951-2 141 mmol/L L=136 H=145 POTASSIUM SERUM 2823-3 3.2 mmol/L L=3.4 H=5 .2 CHLORIDE SERUM 2075-0 104 mmol/L L=96 H=110 CARBON DIOXIDE (CO2) 2028-9 28 mmol/L L=22 H=34 ANION GAP 61273-6 9.2 mmol/L CALCIUM SERUM 61517-9 8.3 mg/dL L=8.2 H=10. 2 BILIRUBIN TOTAL 1975-2 0.3 mg/dL L=0.0 H=1 .3 ALK. PHOS. 6768-6 35 U/L L=46 H=116 SGOT (AST) 1920-8 90 U/L L=15 H=37 SGPT (ALT) 1742-6 72 U/L L=12 H=78 TOTAL PROTEIN 2885-2 6.5 gm/dL L=6.0 H=8.0 ALBUMIN 1751-7 2.5 gm/dL L=3.4 H=5.0 AGE 78 years eGFR (non-Afr.Amer.) 93942-2 57 mL/min eGFR (Afr-Azerbaijani) 76667-5 69 mL/min IRON BINDING CAPACITY - Heri ect Date/Time: 04/23/2023 06:40 Test Name Code Test Result Test Units Test Ref Rang e IBC 2500-7 222 ug/dL L=260 H=445 LIPASE* NEW - Collect Date/T tatiana: 04/22/2023 02:10 Test Name Code Test Result Test Units Test Ref Rang e LIPASE. 42 U/L L=16 H=77 TROPONIN HIGH SENSITIVITY* - Collect Date/Time: 04/25/2023 06:40 Test Name Code Test Result Test Units Test Ref Rang e TROPONIN HS 72.7 pg/mL L=0.0 H=60.4 Specimen seq. OTHER N/A TROPONIN HIGH SENSITIVITY* - Collect Date/Time: 04/23/2023 06:40 Test Name Code Test Result Test Units Test Ref Rang e TROPONIN HS 124.1 pg/mL L=0.0 H=60.4 Specimen seq. RANDOM N/A TROPONIN HIGH SENSITIVITY* - Collect Date/Time: 04/22/2023 13:45 Test Name Code Test Result Test Units Test Ref Rang e TROPONIN HS 151.7 pg/mL L=0.0 H=60.4 Specimen seq. RANDOM N/A TROPONIN HIGH SENSITIVITY* - Collect Date/Time: 04/22/2023 06:25 Test Name Code Test Result Test Units Test Ref Rang e TROPONIN HS 154.9 pg/mL L=0.0 H=60.4 Specimen seq. OTHER N/A TROPONIN HIGH SENSITIVITY* - Collect Date/Time: 04/22/2023 02:10 Test Name Code Test Result Test Units Test Ref Rang e TROPONIN HS 174.2 pg/mL L=0.0 H=60.4 Specimen seq. ADM. N/A CBC W/ DIFFERENTIAL* - Colle ct Date/Time: 04/25/2023 06:40 Test Name Code Test Result Test Units Test Ref Rang e WBC 6690-2 6.81 th/cmm L=5.00 H=10.00 NEUT % 68.2 % L=40.0 H=80.0 LYMPH % 12.8 % L=10.0 H=50.0 MONO % 95797-0 11.5 % L=2.0 H=12.0 EOS % 3.4 % L=0.0 H=8.0 BASO % 0.4 % L=0.0 H=3.0 IG % 2514-8 3.7 % L=0.0 H=1.1 NRBC % 86139-0 0.0 % L=0.0 H=0.0 NEUT abs count 751-8 4.7 th/cmm L=1.6 H=8. 4 LYMPH abs count 731-0 0.9 th/cmm L=1.5 H=4 .0 MONO abs count 742-7 0.8 th/cmm L=0.2 H=1. 0 EOS abs count 711-2 0.2 th/cmm L=0.0 H=0.5 BASO abs count 704-7 0.0 th/cmm L=0.0 H=0. 2 IG abs count 23901-1 0.3 th/cmm L=0.0 H=0.1 NRBC abs count 10107-4 0.0 mil/cmm L=0.0 H=0. 0 RBC 789-8 4.36 mil/cmm L=3.90 H=5.40 HEMOGLOBIN 718-7 10.9 gm/dL L=12.0 H=16.0 HEMATOCRIT 4544-3 35 % L=37 H=47 MCV 787-2 81 fL L=82 H=92 MCH 785-6 25.0 pg L=27.0 H=31.0 MCHC 786-4 31.1 % L=32.0 H=36.0 RDW-SD 788-0 50.4 fL L=39.0 H=49.0 PLATELET COUNT 777-3 240 th/cmm L=150 H=45 0 CBC W/ DIFFERENTIAL* - Colle ct Date/Time: 04/24/2023 06:30 Test Name Code Test Result Test Units Test Ref Rang e WBC 6690-2 5.13 th/cmm L=5.00 H=10.00 NEUT % 69.8 % L=40.0 H=80.0 LYMPH % 12.9 % L=10.0 H=50.0 MONO % 99844-0 11.9 % L=2.0 H=12.0 EOS % 2.7 % L=0.0 H=8.0 BASO % 0.4 % L=0.0 H=3.0 IG % 2514-8 2.3 % L=0.0 H=1.1 NRBC % 03002-7 0.0 % L=0.0 H=0.0 NEUT abs count 751-8 3.6 th/cmm L=1.6 H=8. 4 LYMPH abs count 731-0 0.7 th/cmm L=1.5 H=4 .0 MONO abs count 742-7 0.6 th/cmm L=0.2 H=1. 0 EOS abs count 711-2 0.1 th/cmm L=0.0 H=0.5 BASO abs count 704-7 0.0 th/cmm L=0.0 H=0. 2 IG abs count 17729-6 0.1 th/cmm L=0.0 H=0.1 NRBC abs count 34342-9 0.0 mil/cmm L=0.0 H=0. 0 RBC 789-8 3.84 mil/cmm L=3.90 H=5.40 HEMOGLOBIN 718-7 9.7 gm/dL L=12.0 H=16.0 HEMATOCRIT 4544-3 31 % L=37 H=47 MCV 787-2 80 fL L=82 H=92 MCH 785-6 25.3 pg L=27.0 H=31.0 MCHC 786-4 31.7 % L=32.0 H=36.0 RDW-SD 788-0 50.4 fL L=39.0 H=49.0 PLATELET COUNT 777-3 183 th/cmm L=150 H=45 0 CBC W/ DIFFERENTIAL* - [facility] ct Date/Time: 04/23/2023 06:40 Test Name Code Test Result Test Units Test Ref Rang e WBC 6690-2 5.28 th/cmm L=5.00 H=10.00 NEUT % 72.0 % L=40.0 H=80.0 LYMPH % 11.9 % L=10.0 H=50.0 MONO % 97938-4 12.7 % L=2.0 H=12.0 EOS % 1.7 % L=0.0 H=8.0 BASO % 0.2 % L=0.0 H=3.0 IG % 2514-8 1.5 % L=0.0 H=1.1 NRBC % 95190-0 0.0 % L=0.0 H=0.0 NEUT abs count 751-8 3.8 th/cmm L=1.6 H=8. 4 LYMPH abs count 731-0 0.6 th/cmm L=1.5 H=4 .0 MONO abs count 742-7 0.7 th/cmm L=0.2 H=1. 0 EOS abs count 711-2 0.1 th/cmm L=0.0 H=0.5 BASO abs count 704-7 0.0 th/cmm L=0.0 H=0. 2 IG abs count 14366-9 0.1 th/cmm L=0.0 H=0.1 NRBC abs count 17830-0 0.0 mil/cmm L=0.0 H=0. 0 RBC 789-8 4.23 mil/cmm L=3.90 H=5.40 HEMOGLOBIN 718-7 10.7 gm/dL L=12.0 H=16.0 HEMATOCRIT 4544-3 34 % L=37 H=47 MCV 787-2 80 fL L=82 H=92 MCH 785-6 25.3 pg L=27.0 H=31.0 MCHC 786-4 31.5 % L=32.0 H=36.0 RDW-SD 788-0 50.4 fL L=39.0 H=49.0 PLATELET COUNT 777-3 191 th/cmm L=150 H=45 0 CBC W/ DIFFERENTIAL* - Colle ct Date/Time: 04/22/2023 02:10 Test Name Code Test Result Test Units Test Ref Rang e WBC 6690-2 6.61 th/cmm L=5.00 H=10.00 NEUT % 77.9 % L=40.0 H=80.0 LYMPH % 9.2 % L=10.0 H=50.0 MONO % 78398-4 11.5 % L=2.0 H=12.0 EOS % 0.3 % L=0.0 H=8.0 BASO % 0.2 % L=0.0 H=3.0 IG % 2514-8 0.9 % L=0.0 H=1.1 NRBC % 95442-0 0.0 % L=0.0 H=0.0 NEUT abs count 751-8 5.2 th/cmm L=1.6 H=8. 4 LYMPH abs count 731-0 0.6 th/cmm L=1.5 H=4 .0 MONO abs count 742-7 0.8 th/cmm L=0.2 H=1. 0 EOS abs count 711-2 0.0 th/cmm L=0.0 H=0.5 BASO abs count 704-7 0.0 th/cmm L=0.0 H=0. 2 IG abs count 56012-8 0.1 th/cmm L=0.0 H=0.1 NRBC abs count 07927-7 0.0 mil/cmm L=0.0 H=0. 0 RBC 789-8 4.21 mil/cmm L=3.90 H=5.40 HEMOGLOBIN 718-7 10.7 gm/dL L=12.0 H=16.0 HEMATOCRIT 4544-3 33 % L=37 H=47 MCV 787-2 79 fL L=82 H=92 MCH 785-6 25.4 pg L=27.0 H=31.0 MCHC 786-4 32.0 % L=32.0 H=36.0 RDW-SD 788-0 48.6 fL L=39.0 H=49.0 PLATELET COUNT 777-3 193 th/cmm L=150 H=45 0 Active Medications Medication Code Dose Units Frequency Route Modificatio n Start Date/Time Augmentin 500MG-125MG Oral Tablet 960013 1 TABLET TWICE A DAY ORAL 04/25/2023 11:10 Prescription Detail TAKE 1 TABLET ORAL TWICE A DAY guaiFENesin DM 10MG/5ML-100MG/ 5ML Oral Syrup 401767 10 mL NEEDED EVERY 4 HOURS ORAL 04/25/2023 11:00 Prescription Detail TAKE 10 mL ORAL NEEDED EVERY 4 HOURS Ondansetron 4MG Oral Tablet 697065 4 MILLIGRAMS NEEDED EVERY 8 HOURS ORAL 04/25/2023 11:00 Prescription Detail TAKE 4 MILLIGRAMS ORAL NEEDED EVERY 8 HOURS Acetaminophen 500MG Oral Tablet 375692 4376 MILLIGRAMS NEEDED EVERY 6 HOURS ORAL 04/20/2023 12:03 Prescription Detail TAKE 1000 MILLIGRAMS ORAL NEEDED EVER Y 6 HOURS Alendronate Sod 70MG Oral Tablet 3347627923 0 70 MILLIGRAMS SUNDAYS ORAL 04/20/2023 12:03 Prescription Detail TAKE 70 MILLIGRAMS ORAL SUNDAYS Artificial Tears Ophthalmic Solution 998804 1 EACH FOUR TIMES A DAY OPHTHALMIC 04/20/2023 12:[address] EACH OPHTHALMIC FOUR TIMES A DAY Docusate 100MG Oral Capsule, Liquid Filled 3438279 100 MILLIGRAMS NEEDED TWICE DAILY ORAL 04/20/2023 12:03 Prescription Detail TAKE 100 MILLIGRAMS ORAL NEEDED TWICE DAILY Famotidine 20MG Oral Tablet 702928 20 MILLIGRAMS TWICE A DAY ORAL 04/20/2023 12:03 Prescription Detail TAKE 20 MILLIGRAMS ORAL TWICE A DAY Hydrocortisone 2.5% Topical application Cream 837651 1 EACH NEEDED DAILY TOPICAL APPLICATION 04/20/2023 12:03 Prescription Detail 1 EACH TOPICAL APPLICATION NEEDED MARIA L LY Ibuprofen 200MG Oral Tablet 499059 400 MILLIGRAMS NEEDED EVERY 6 HOURS ORAL 04/20/2023 12:03 Prescription Detail TAKE 400 MILLIGRAMS ORAL NEEDED EVERY 6 HOURS Lisinopril 20MG Oral Tablet 267140 20 MILLIGRAMS DAILY ORAL 023 12:03 Prescription Detail TAKE 20 MILLIGRAMS ORAL DAILY Lovastatin 40MG Oral Tablet 190405 40 MILLIGRAMS BEDTIME ORAL 023 12:03 Prescription Detail TAKE 40 MILLIGRAMS ORAL BEDTIME Polyethylene Glycol 3350 17 GM/1 Packet Oral Packet 675308 1 EACH NEEDED DAILY ORAL 04/20/2023 12:03 Prescription Detail TAKE 1 EACH ORAL NEEDED DAILY Simethicone 80MG Oral Tablet, Chewable 717540 80 MILLIGRAMS NEEDED EVERY 6 HOURS ORAL 04/20/2023 12:03 Prescription Detail TAKE 80 MILLIGRAMS ORAL NEEDED EVERY 6 HOURS Vitamin D3 1000 IU Oral Capsule, Liquid Filled 0378045845 1 1000 IU DAILY ORAL 04/20/2023 12:03 Prescription Detail TAKE 1000 IU ORAL DAILY Fluticasone Propionate 0.05MG/1Actuati on Nasal Point [place] 6799059 1 EACH TWICE A DAY NASAL 04/26/2022 16:41 Prescription Detail SPRAY 1 EACH NASAL TWICE A DAY Memantine HCl 7MG Oral Capsule, Extended Release 768079 7 MILLIGRAMS DAILY ORAL 16:41 Prescription Detail TAKE 7 MILLIGRAMS ORAL DAILY Medications Administered During Visit Medication Dose Units Frequency Route Date/Time of Last Dose SODIUM CHLORIDE 0.9% 1000ML 500 ML X1 IV 04/22/2023 02:30 CefTRIAXone IVPB: 1GM/50ML 1 GM X1 IVP B 04/22/2023 02:35 MetroNIDAZOLE IVPB PREMIX: 500MG/100ML 500 MG X1 IVPB 04/22/2023 03:0 5 POTASSIUM CHL IN NS: 20mEq/1000ML 1000 ML X1 IV 04/22/2023 03:1 6 CefTRIAXone IVPB: 1GM/50ML 1 GM Q24H IVP B 04/25/2023 00:23 MEMANTINE TABLET: 5MG 5 MG BID PO 04/25/2023 08:23 FAMOTIDINE TABLET: 20MG 20 MG BID PO 04/25/2023 08:22 LISINOPRIL TABLET: 20MG 20 MG DAILY PO 04/25/2023 08:22 ATORVASTATIN TABLET: 20MG 20 MG BEDTIME PO 04/24/2023 20:11 POLYETHYLENE GLYCOL PACKET 3350:17GM 17 GRAMS DAILY PO 04/25/2023 08:2 3 VITAMIN D3 TABLET: 1000UNITS 1000 UNITS DAILY P O 04/25/2023 08:22 ONDANSETRON TABLET ORAL DISINTEGRAT: 4MG 4 MG PRN Q4H PO 04/24/2023 08:09 ONDANSETRON INJ SDV: 4MG/2ML 4 MG PRN Q6H 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 04/23/2023 23:12 POTASSIUM CHL ORAL COY: 40mEq/30ML 40 MEQ DAILY WITH FOOD PO 04/23/2023 0 8:54 POTASSIUM CHL IN NS: 20mEq/1000ML 100 ML CONT IV 04/22/2023 17:1 3 NYSTATIN ORAL SUSP: 500,000 UNITS/5ML 5 ML QID PO 04/25/2023 06:0 7 ALBUTEROL UPDRAFT 30CT UD: 2.5MG/3ML 2.5 MG PRN Q4H INH 04/23/2023 22:4 8 Encounters Encounter Diagnosis Diagnosis Code Start Date Pneumonia, unspecified organism [id number] 04/23/2023 Social History Smoking Status Code Start Date End Date Never smoker [id number] Patient Decision Aids Patient Decision Aid Patient Portal Access Discharge Instructions You were admitted to [facility] on 04/23/2023 12:16 with a principal diagnosis of Pneumonia, unspecified organism You had the following tests done:CBC W/ DIFFERENTIAL*COMPREHENSIVE METABOLIC PANEL (CMP)TROPONIN HIGH SENSITIVITY*BASIC METABOLIC PANEL (BMP)C REACTIVE PROTEIN HIGH SENSITIVITY*CBC W/ DIFFERENTIAL*BASIC METABOLIC PANEL (BMP)CBC W/ DIFFERENTIAL*IRON BINDING CAPACITYTROPONIN HIGH SENSITIVITY*TROPONIN HIGH SENSITIVITY*TROPONIN HIGH SENSITIVITY*CBC W/ DIFFERENTIAL*COMPREHENSIVE METABOLIC PANEL (CMP)LIPASE* NEWTROPONIN HIGH SENSITIVITY* You were discharged from [facility] on 04/25/2023 13:10 Should you have any questions prior to discharge, please contact a member of your healthcare team. If you have left the hospital and have any questions, please contact your primary care physician. Chief Complaint and Reason For Visit Chief Complaint Date of Onset RIGHT UPPER PNEUMONIA AND TROPONINEMIA 1 06/23/2022 Function Status Unknown or Not Available. Plan of Care Unknown or Not Available. Referral/Transition of Care Unknown or Not Available.
--- OUTSIDE RECORDS SUMMARY | 2023-05-17 16:56 | XMS_ITS | CCD ---
Author Name Unknown Address [address] [place] [address] [phone] Organization Unknown Address [address] [place] [address] [phone] Care Team Providers Care Manager [place] Name Role Phone AMANDA MEHTA Attending Physician [phone] PAO REYNOSO Er Physician 0 [phone] PAO REYNOSO Rounding (Secondary) Physician 8 [phone] ABBY Castillo Registered Nurse [phone] Vital Signs Vital Sign Value Unit Date/Time Recent/Initial ? BMI (Body Mass Index) 30.27 kg/m^2 04/19/2023 13: 55 Initial VS Weight Measured 155 lbs 04/19/2023 13:55 Ini tial VS Height 60 in 04/19/2023 13:55 Initial VS BSA (Body Surface Area) 1.73 m^2 04/19/2023 1 3:55 Initial VS BP Systolic 122 mmHg 04/19/2023 13:55 Initial VS BP Diastolic 68 mmHg 04/19/2023 13:55 Initia l VS Respiratory Rate 18 bpm 04/19/2023 13:55 In itial VS Heart Rate 112 bpm 04/19/2023 13:55 Initial VS O2 % BldC Oximetry 93 % 04/19/2023 13:55 Initial VS Body Temperature 38.9 degrees 04/19/2023 13:55 In itial VS BP Systolic 105 mmHg 04/20/2023 14:18 Most Re cent VS BP Diastolic 58 mmHg 04/20/2023 14:18 Most R ecent VS Respiratory Rate 20 bpm 04/20/2023 14:[address] Recent VS Heart Rate 80 bpm 04/20/2023 14:18 Most Rec ent VS O2 % BldC Oximetry 99 % 04/20/2023 14:18 Most Recent VS Body Temperature 36.9 degrees 04/20/2023 14:[address] Recent VS Allergies Allergy Code Allergy Type Reaction Status No Known Drug Allergies 0 No known drug allergies Active Procedures Unknown or Not Available. History of Immunizations Unknown or Not Available. 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 2 AGE 78 years eGFR (non-Afr.Amer.) 32058-8 52 mL/min eGFR (Afr-Peruvian) 66016-6 62 mL/min COMPREHENSIVE METABOLIC PANE L (CMP) - Collect Date/Time: 04/19/2023 14:15 Test Name Code Test Result Test Units Test Ref Rang e GLUCOSE 2345-7 130 mg/dL L=70 H=116 BUN 3094-0 23 mg/dL L=6 H=25 CREATININE 2160-0 0.90 mg/dL L=0.51 H=0.95 SODIUM SERUM 2951-2 137 mmol/L L=136 H=145 POTASSIUM SERUM 2823-3 3.5 mmol/L L=3.4 H=5 .2 CHLORIDE SERUM 2075-0 101 mmol/L L=96 H=110 CARBON DIOXIDE (CO2) 2028-9 23 mmol/L L=22 H=34 ANION GAP 72031-0 12.6 mmol/L CALCIUM SERUM 02773-6 8.5 mg/dL L=8.2 H=10. 2 BILIRUBIN TOTAL 1975-2 0.5 mg/dL L=0.0 H=1 .3 ALK. PHOS. 6768-6 30 U/L L=46 H=116 SGOT (AST) 1920-8 17 U/L L=15 H=37 SGPT (ALT) 1742-6 9 U/L L=12 H=78 TOTAL PROTEIN 2885-2 6.9 gm/dL L=6.0 H=8.0 ALBUMIN 1751-7 2.9 gm/dL L=3.4 H=5.0 AGE 78 years eGFR (non-Afr.Amer.) 01619-2 61 mL/min eGFR (Afr-Peruvian) 38063-4 74 mL/min FERRITIN - Collect Date/Time : 04/20/2023 06:50 Test Name Code Test Result Test Units Test Ref Rang e FERRITIN 2276-4 176 ng/mL L=8 H=388 IRON - Collect Date/Time: 06:50 Test Name Code Test Result Test Units Test Ref Rang e IRON 2498-4 7 ug/dL L=35 H=150 LACTIC ACID - Collect Date/T tatiana: 04/19/2023 14:15 Test Name Code Test Result Test Units Test Ref Rang e LACTIC ACID 92831-6 1.5 mmol/L L=0.7 H=2.1 CBC W/ DIFFERENTIAL* - Colle ct Date/Time: 04/20/2023 06:50 Test Name Code Test Result Test Units Test Ref Rang e WBC 6690-2 7.94 th/cmm L=5.00 H=10.00 NEUT % 84.5 % L=40.0 H=80.0 LYMPH % 6.2 % L=10.0 H=50.0 MONO % 02401-0 8.1 % L=2.0 H=12.0 EOS % 0.0 % L=0.0 H=8.0 BASO % 0.1 % L=0.0 H=3.0 IG % 2514-8 1.1 % L=0.0 H=1.1 NRBC % 11104-6 0.0 % L=0.0 H=0.0 NEUT abs count 751-8 6.7 th/cmm L=1.6 H=8. 4 LYMPH abs count 731-0 0.5 th/cmm L=1.5 H=4 .0 MONO abs count 742-7 0.6 th/cmm L=0.2 H=1. 0 EOS abs count 711-2 0.0 th/cmm L=0.0 H=0.5 BASO abs count 704-7 0.0 th/cmm L=0.0 H=0. 2 IG abs count 00751-6 0.1 th/cmm L=0.0 H=0.1 NRBC abs count 36109-7 0.0 mil/cmm L=0.0 H=0. 0 RBC 789-8 3.83 mil/cmm L=3.90 H=5.40 HEMOGLOBIN 718-7 9.9 gm/dL L=12.0 H=16.0 HEMATOCRIT 4544-3 31 % L=37 H=47 MCV 787-2 82 fL L=82 H=92 MCH 785-6 25.8 pg L=27.0 H=31.0 MCHC 786-4 31.7 % L=32.0 H=36.0 RDW-SD 788-0 49.5 fL L=39.0 H=49.0 PLATELET COUNT 777-3 156 th/cmm L=150 H=45 0 CBC W/ DIFFERENTIAL* - [facility] ct Date/Time: 04/19/2023 14:15 Test Name Code Test Result Test Units Test Ref Rang e WBC 6690-2 9.27 th/cmm L=5.00 H=10.00 NEUT % 86.3 % L=40.0 H=80.0 LYMPH % 4.5 % L=10.0 H=50.0 MONO % 27751-7 8.0 % L=2.0 H=12.0 EOS % 0.0 % L=0.0 H=8.0 BASO % 0.2 % L=0.0 H=3.0 IG % 2514-8 1.0 % L=0.0 H=1.1 NRBC % 39044-4 0.0 % L=0.0 H=0.0 NEUT abs count 751-8 8.0 th/cmm L=1.6 H=8. 4 LYMPH abs count 731-0 0.4 th/cmm L=1.5 H=4 .0 MONO abs count 742-7 0.7 th/cmm L=0.2 H=1. 0 EOS abs count 711-2 0.0 th/cmm L=0.0 H=0.5 BASO abs count 704-7 0.0 th/cmm L=0.0 H=0. 2 IG abs count 88126-5 0.1 th/cmm L=0.0 H=0.1 NRBC abs count 36877-6 0.0 mil/cmm L=0.0 H=0. 0 RBC 789-8 4.10 mil/cmm L=3.90 H=5.40 HEMOGLOBIN 718-7 10.6 gm/dL L=12.0 H=16.0 HEMATOCRIT 4544-3 33 % L=37 H=47 MCV 787-2 81 fL L=82 H=92 MCH 785-6 25.9 pg L=27.0 H=31.0 MCHC 786-4 32.1 % L=32.0 H=36.0 RDW-SD 788-0 47.9 fL L=39.0 H=49.0 PLATELET COUNT 777-3 165 th/cmm L=150 H=45 0 RETICULOCYTE COUNT* - Colle t Date/Time: 04/20/2023 06:50 Test Name Code Test Result Test Units Test Ref Rang e RETICULOCYTE COUNT 07305-5 0.9 % L=0.5 H=2.5 KATIE COVID FLU RSV GENEXPE RT - Collect Date/Time: 04/19/2023 14:15 Test Name Code Test Result Test Units Test Ref Rang e COVID 10171-2 NEGATIVE N/A Normal: Negati ve INFLUENZA A DNA 05218-7 NEGATIVE N/A Normal: N egative INFLUENZA B DNA 82249-3 NEGATIVE N/A Normal: N egative RSV DNA 11438-1 NEGATIVE N/A Normal: Negati ve Active Medications Medication Code Dose Units Frequency Route Modificatio n Start Date/Time Augmentin 500MG-125MG Oral Tablet 024942 1 TABLET TWICE A DAY ORAL 04/25/2023 11:10 Prescription Detail TAKE 1 TABLET ORAL TWICE A DAY guaiFENesin DM 10MG/5ML-100MG/ 5ML Oral Syrup 752570 10 mL NEEDED EVERY 4 HOURS ORAL 04/25/2023 11:00 Prescription Detail TAKE 10 mL ORAL NEEDED EVERY 4 HOURS Ondansetron 4MG Oral Tablet 683622 4 MILLIGRAMS NEEDED EVERY 8 HOURS ORAL 04/25/2023 11:00 Prescription Detail TAKE 4 MILLIGRAMS ORAL NEEDED EVERY 8 HOURS Acetaminophen 500MG Oral Tablet 089077 2880 MILLIGRAMS NEEDED EVERY 6 HOURS ORAL 04/20/2023 12:03 Prescription Detail TAKE 1000 MILLIGRAMS ORAL NEEDED EVER Y 6 HOURS Alendronate Sod 70MG Oral Tablet 9566130507 0 70 MILLIGRAMS SUNDAYS ORAL 04/20/2023 12:03 Prescription Detail TAKE 70 MILLIGRAMS ORAL SUNDAYS Artificial Tears Ophthalmic Solution 275517 1 EACH FOUR TIMES A DAY OPHTHALMIC 04/20/2023 12:[address] EACH OPHTHALMIC FOUR TIMES A DAY Docusate 100MG Oral Capsule, Liquid Filled 0519076 100 MILLIGRAMS NEEDED TWICE DAILY ORAL 04/20/2023 12:03 Prescription Detail TAKE 100 MILLIGRAMS ORAL NEEDED TWICE DAILY Famotidine 20MG Oral Tablet 389281 20 MILLIGRAMS TWICE A DAY ORAL 04/20/2023 12:03 Prescription Detail TAKE 20 MILLIGRAMS ORAL TWICE A DAY Hydrocortisone 2.5% Topical application Cream 322726 1 EACH NEEDED DAILY TOPICAL APPLICATION 04/20/2023 12:03 Prescription Detail 1 EACH TOPICAL APPLICATION NEEDED MARIA L LY Ibuprofen 200MG Oral Tablet 999391 400 MILLIGRAMS NEEDED EVERY 6 HOURS ORAL 04/20/2023 12:03 Prescription Detail TAKE 400 MILLIGRAMS ORAL NEEDED EVERY 6 HOURS Lisinopril 20MG Oral Tablet 782775 20 MILLIGRAMS DAILY ORAL 023 12:03 Prescription Detail TAKE 20 MILLIGRAMS ORAL DAILY Lovastatin 40MG Oral Tablet 137578 40 MILLIGRAMS BEDTIME ORAL 023 12:03 Prescription Detail TAKE 40 MILLIGRAMS ORAL BEDTIME Polyethylene Glycol 3350 17 GM/1 Packet Oral Packet 802007 1 EACH NEEDED DAILY ORAL 04/20/2023 12:03 Prescription Detail TAKE 1 EACH ORAL NEEDED DAILY Simethicone 80MG Oral Tablet, Chewable 316758 80 MILLIGRAMS NEEDED EVERY 6 HOURS ORAL 04/20/2023 12:03 Prescription Detail TAKE 80 MILLIGRAMS ORAL NEEDED EVERY 6 HOURS Vitamin D3 1000 IU Oral Capsule, Liquid Filled 7804786964 1 1000 IU DAILY ORAL 04/20/2023 12:03 Prescription Detail TAKE 1000 IU ORAL DAILY Fluticasone Propionate 0.05MG/1Actuati on Nasal [place] 8188667 1 EACH TWICE A DAY NASAL 04/26/2022 16:41 Prescription Detail SPRAY 1 EACH NASAL TWICE A DAY Memantine HCl 7MG Oral Capsule, Extended Release 307938 7 MILLIGRAMS DAILY ORAL 16:41 Prescription Detail TAKE 7 MILLIGRAMS ORAL DAILY Medications Administered During Visit Medication Dose Units Frequency Route Date/Time of Last Dose SODIUM CHLORIDE 0.9% 1000ML 1000 ML X1 IV 04/19/2023 14:2 9 CefTRIAXone IVPB: 1GM/50ML 1 GM X1 IVPB 04/19/2023 16:3 4 AZITHROMYCIN IVPB: 500MG/250ML 500 MG X1 IVPB 04/19/2023 15:3 4 SODIUM CHLORIDE 0.9% FLUSH 10ML SYRINGE 2 ML Q8H IVP 3 06:41 ACETAMINOPHEN TABLET: 325MG 650 MG PRN Q4H PO 04/20/2023 08:1 1 ONDANSETRON INJ SDV: 4MG/2ML 4 MG PRN Q4H IVP 04/19/2023 19:3 2 FLUTICASONE NASAL SPRAY 0.05% 1 EA BID NASAL EACH NOSTRIL 3 08:12 MEMANTINE TABLET: 5MG 7.5 MG DAILY PO 04/20/2023 08:11 LISINOPRIL TABLET: 20MG 20 MG DAILY PO 04/20/2023 08:11 VITAMIN D3 TABLET: 1000UNITS 1000 UNITS DAILY PO 04/20/2023 08:1 1 FAMOTIDINE TABLET: 20MG 20 MG BID PO 04/20/2023 08:11 TEARS ARTIFICIAL OPHTHALMIC PF 0.4ML 1 DROP QID OPTH EACH EYE 023 12:03 ATORVASTATIN TABLET: 20MG 20 MG BEDTIME PO 04/19/2023 21:00 GuaiFENesin/DM SYRUP: 200/20MG/10ML 10 ML PRN Q4H PO 04/19/2023 23: 00 CEFPODOXIME TABLET: 200MG 200 MG Q12H PO 04/20/2023 11:57 Encounters Encounter Diagnosis Diagnosis Code Start Date Pneumonia, unspecified organism [id number] 04/19/2023 Social History Smoking Status Code Start Date End Date Never smoker [id number] Patient Decision Aids Unknown or Not Available. Discharge Instructions You were admitted to [facility] on 04/19/2023 15:40 with a principal diagnosis of Pneumonia, unspecified organism You had the following tests done:BASIC METABOLIC PANEL (BMP)CBC W/ DIFFERENTIAL*FERRITINIRONRETICULOCYTE COUNT*CBC W/ DIFFERENTIAL*COMPREHENSIVE METABOLIC PANEL (CMP)[facility] COVID FLU RSV GENEXPERTLACTIC ACID You were discharged from [facility] on 04/20/2023 16:10 Should you have any questions prior to discharge, please contact a member of your healthcare team. If you have left the hospital and have any questions, please contact your primary care physician. Chief Complaint and Reason For Visit Chief Complaint Date of Onset PNEUMONIA 04/19/2023 Function Status Unknown or Not Available. Plan of Care Unknown or Not Available. Referral/Transition of Care Unknown or Not Available.
[2023-05-17 21:50] LABS: HCT 35.9 % (36.0-46.0); HGB 11.1 g/dL (11.2-15.7); MCH 25.2 pg (27.0-33.0); MCHC 30.9 % (32.0-36.0); MCV 82 fL (80-95); MPV 10.7 fL (8.0-11.0); Platelet Count 168 10^3/uL (130-400); RDW 15.9 % (11.7-14.6); RDW-SD 47.3 fL; WBC 5.11 10^3/uL (4.4-10.8)
[2023-05-17 22:15] LABS: Iron 21 ug/dL (50-170); Total Iron Binding Capacity 331 ug/dL (250-450); Transferrin Sat 6 % (15-50)
[2023-05-17 22:43] LABS: Ferritin 29 ng/mL (8-252); Vitamin B12 291 pg/mL (193-986)
== END 2023-05-17 16:52 | disposition home or self-care (01) ==
LOC: NCHCN 16:51
PROVIDERS: PCP Internal Medicine; Visit Provider Internal Medicine
DX: Z86.2 Personal history of diseases of the blood and blood-forming organs and certain disorders involving the immune mechanism (principal)
CPT/HCPCS: 85027; 82607; 82728; 83540; 83550

== ENCOUNTER 2023-07-16 11:12 | Outpatient (REF) | payer MEDICARE, MEDICAID, SELFPAY ==
[2023-07-16 14:47] LABS: HCT 41.3 % (36.0-46.0); HGB 13.5 g/dL (11.2-15.7); MCH 27.1 pg (27.0-33.0); MCHC 32.7 % (32.0-36.0); MCV 83 fL (80-95); MPV 10.8 fL (8.0-11.0); Platelet Count 161 10^3/uL (130-400); RBC 4.99 10^6/uL (3.93-5.22); RDW 16.2 % (11.7-14.6); RDW-SD 48.9 fL; WBC 6.69 10^3/uL (4.4-10.8)
[2023-07-16 15:29] LABS: Iron 118 ug/dL (50-170); Total Iron Binding Capacity 360 ug/dL (250-450); Transferrin Sat 33 % (15-50)
[2023-07-16 15:43] LABS: ALT 37 U/L (14-59); AST 22 U/L (15-37); Albumin 3.7 g/dL (3.4-5.0); Alkaline Phosphatase 46 U/L (46-116); Anion Gap 11.9 mmol/L (3-11); BUN 20 mg/dL (7-18); Bilirubin, Total 0.3 mg/dL (0.2-1.0); CO2 26.1 mmol/L (21.0-32.0); CREATININE 0.8 mg/dL (0.55-1.02); Calcium 9.5 mg/dL (8.5-10.1); Chloride 108 mmol/L (98-107); Estimated GFR 76.31 (mL/min/1.73m2); Ferritin 31 ng/mL (8-252); Glucose 60 mg/dL (74-106); Sodium 146 mmol/L (136-145); Total Protein 6.6 g/dL (6.4-8.2); Vitamin B12 722 pg/mL (193-986)
== END 2023-07-16 11:13 | disposition home or self-care (01) ==
LOC: NCHCN 11:12
PROVIDERS: PCP Internal Medicine; Visit Provider Internal Medicine
DX: I10 Essential (primary) hypertension (principal); E53.8 Deficiency of other specified B group vitamins; Z86.2 Personal history of diseases of the blood and blood-forming organs and certain disorders involving the immune mechanism
CPT/HCPCS: 80053; 85027; 82607; 82728; 83540; 83550

== ENCOUNTER 2024-07-17 14:32 | Outpatient (REF) | payer MEDICARE, MEDICAID, SELFPAY ==
[2024-07-17 21:45] LABS: HCT 39.2 % (36.0-46.0); HGB 12.8 g/dL (11.2-15.7); MCH 29.6 pg (27.0-33.0); MCHC 32.7 % (32.0-36.0); MCV 91 fL (80-95); MPV 10.1 fL (8.0-11.0); Platelet Count 159 10^3/uL (130-400); RBC 4.32 10^6/uL (3.93-5.22); RDW 13.8 % (11.7-14.6); RDW-SD 46.1 fL; WBC 8.59 10^3/uL (4.4-10.8)
[2024-07-17 22:07] LABS: ALT 39 U/L (14-59); AST 26 U/L (15-37); Albumin 3.7 g/dL (3.4-5.0); Alkaline Phosphatase 45 U/L (46-116); Anion Gap 6.8 mmol/L (3-11); BUN 23 mg/dL (7-18); Bilirubin, Total 0.33 mg/dL (0.2-1.0); CO2 29.2 mmol/L (21.0-32.0); Calcium 9.6 mg/dL (8.5-10.1); Chloride 109 mmol/L (98-107); Estimated GFR 58.02 (mL/min/1.73m2); Glucose 84 mg/dL (74-106); Potassium 4.2 mmol/L (3.5-5.1); Sodium 145 mmol/L (136-145)
[2024-07-17 23:21] LABS: Iron 64 ug/dL (50-170); Total Iron Binding Capacity 286 ug/dL (250-450)
== END 2024-07-17 14:33 | disposition home or self-care (01) ==
LOC: NCHCN 14:32
PROVIDERS: PCP Internal Medicine; Visit Provider Internal Medicine
DX: Z86.2 Personal history of diseases of the blood and blood-forming organs and certain disorders involving the immune mechanism (principal); I10 Essential (primary) hypertension
CPT/HCPCS: 80053; 85027; 83540; 83550